=== PATIENT | female | born 1955 | race Caucasian/White ===

== ENCOUNTER 2021-07-15 17:07 | Inpatient (IN) ==
[2021-07-15 20:17] LABS: Hematocrit 20.9 VOL% (35.7-47.0); Hemoglobin 7.3 GM/DL (12.0-16.0); Immature Granulocytes % 0.6 %; Immature Granulocytes Absolute 0.01 #; Lymphocytes # 1.1 10*3/uL (1.4-4.0); Lymphocytes % 64.5 % (21.3-54.2); Mean Corpuscular HGB Conc 34.9 GM/DL (32-36); Mean Corpuscular Volume 114.2 FL (87-102); Mean Platelet Volume 12.3 FL (9.6-12.0); Monocytes % 5.8 % (1.7-12.7); Neutrophils % 29.1 % (38.7-73.9); Red Blood Count 1.83 MC/CUMM (3.8-5.5); Red Cell Distribution Width 15.5 % (9.3-17.3); White Blood Count 1.7 T/CUMM (4-12)
[2021-07-15 20:19] LABS: Albumin 3.1 G/DL (3.4-5.0); Bilirubin,Total 0.4 MG/DL (0.20-1.00); Calcium 9.3 MG/DL (8.5-10.1); Osmolality,Calculated 270.4 MOS/KG (273-304); Potassium 3.6 MMOL/L (3.5-5.1); Total Protein 7.5 G/DL (6.4-8.2)
[2021-07-15 20:25] LABS: Platelet Count 21 T/CUMM (130-400)
[2021-07-15 20:46] LABS: PT Patient Result 11.3 SECS (10.5-12.0); Partial Thromboplastin Time 24.7 SECS (23.8-32.1)
[2021-07-15 20:48] LABS: Lymphocytes 66 % (20-55); Segmented Neutrophils 26 % (50-85); Total Cells Counted 100
[2021-07-15 20:49] LABS: Anisocytosis 1+; Hypochromia 1+; Schistocytes Slight; Tear Drop Cells Few
[2021-07-15 20:50] LABS: Platelet Estimate Decreased; Polychromasia Slight; Spherocytes Few
[2021-07-15] MEDS ORDERED: LACTATED RINGERS 1,000 ML IV ONE (22:35)
[2021-07-15] MEDS ORDERED: CEFEPIME 2,000 MG in SODIUM CHLORIDE 0.9% 100 ML IV STA ×2 (22:36→23:54)
[2021-07-15] MEDS ORDERED: GLUCAGON 1 MG VIAL IM PRN (23:43)
[2021-07-15] MEDS ORDERED: ACETAMINOPHEN 325 MG TABLET PO PRN (23:43)
[2021-07-15] MEDS ORDERED: DEXTROSE 50% 25 GM/50 ML SYRINGE IV PRN (23:49)
[2021-07-16 00:38] LABS: Bacteria,Urine Occasional /HPF (Few); Bilirubin,Urine Negative (Negative); Blood, Urine Negative (Negative); Glucose,Urine (UA) Negative (Negative); Ketones,Urine Negative (Negative); Nitrite,Urine Negative (Negative); Protein,Urine Negative; RBC,Urine 2 /HPF (0-4); Squamous Epithelial Cell,Urine Occasional /HPF (0-10); Urine Appearance CLEAR (Clear); Urine Color Yellow (Yellow); Urine Specific Gravity 1.014 (1.001-1.035); Urine Urobilinogen < 2.0 EU/DL (<2.0)
[2021-07-16] MEDS ORDERED: CEFEPIME 2,000 MG in SODIUM CHLORIDE 0.9% 100 ML IV ONE (01:30)
[2021-07-16] MEDS ORDERED: INSULIN REGULAR 100 UNIT/ML SUBCUT SCH (07:30)
[2021-07-16 07:54] LABS: Hematocrit 20.3 VOL% (35.7-47.0); Hemoglobin 6.8 GM/DL (12.0-16.0); Immature Granulocytes % 8.8 %; Lymphocytes # 0.7 10*3/uL (1.4-4.0); Lymphocytes % 57.9 % (21.3-54.2); Mean Corpuscular HGB Conc 33.5 GM/DL (32-36); Mean Corpuscular Volume 113.4 FL (87-102); Mean Platelet Volume 10.9 FL (9.6-12.0); Monocytes % 9.6 % (1.7-12.7); Neutrophils % 23.7 % (38.7-73.9); Red Blood Count 1.79 MC/CUMM (3.8-5.5); Red Cell Distribution Width 15.2 % (9.3-17.3); White Blood Count 1.1 T/CUMM (4-12)
[2021-07-16 07:56] LABS: Platelet Count 19 T/CUMM (130-400)
[2021-07-16 08:14] LABS: Albumin 2.9 G/DL (3.4-5.0); Bilirubin,Total 0.5 MG/DL (0.20-1.00); Calcium 9.1 MG/DL (8.5-10.1); Potassium 3.9 MMOL/L (3.5-5.1)
[2021-07-16 08:16] LABS: Band Neutrophils 1 % (0-10); Lymphocytes 55 % (20-55); Platelet Estimate Decreased; Segmented Neutrophils 29 % (50-85); Total Cells Counted 100
[2021-07-16 08:17] LABS: Hypochromia 1+; Microcytosis 1+
[2021-07-16] MEDS ORDERED: PANTOPRAZOLE 40 MG TABLET PO SCH (09:00)
[2021-07-16] MEDS ORDERED: SODIUM CHLORIDE 0.9% 1,000 ML IV PRN (09:52)
[2021-07-16] MEDS: CEFEPIME 2,000 MG in SODIUM CHLORIDE 0.9% 100 ML IV SCH ×2 (10:00→21:36)
[2021-07-16] MEDS: SODIUM CHLORIDE 0.9% 1,000 ML IV SCH ×2 (11:41→13:00)
[2021-07-16] MEDS ORDERED: ARIPiprazole 5 MG TABLET PO PRN (17:14)
[2021-07-16] MEDS: FLUoxetine 20 MG CAPSULE PO SCH (21:36)
[2021-07-17 06:53] LABS: Hematocrit 26.4 VOL% (35.7-47.0); Hemoglobin 9.1 GM/DL (12.0-16.0); Lymphocytes # 0.6 10*3/uL (1.4-4.0); Mean Corpuscular HGB Conc 34.5 GM/DL (32-36); Mean Corpuscular Volume 101.9 FL (87-102); Mean Platelet Volume 11.1 FL (9.6-12.0); Monocytes % 9.5 % (1.7-12.7); Neutrophils % 29.5 % (38.7-73.9); Red Blood Count 2.59 MC/CUMM (3.8-5.5); Red Cell Distribution Width 21.9 % (9.3-17.3); White Blood Count 1.1 T/CUMM (4-12)
[2021-07-17 06:55] LABS: Platelet Count 18 T/CUMM (130-400)
[2021-07-17 07:17] LABS: Hypochromia 1+; Lymphocytes 58 % (20-55); Microcytosis 1+; Nucleated Red Blood Cells 1 (0-5); Platelet Estimate Decreased; Segmented Neutrophils 32 % (50-85); Total Cells Counted 100
[2021-07-17 07:20] LABS: Albumin 2.9 G/DL (3.4-5.0); Bilirubin,Total 0.6 MG/DL (0.20-1.00); Osmolality,Calculated 275.8 MOS/KG (273-304); Potassium 4.2 MMOL/L (3.5-5.1); Total Protein 7.1 G/DL (6.4-8.2)
[2021-07-17] MEDS ORDERED: FERROUS SULFATE 325 MG TABLET PO SCH (09:00)
[2021-07-17] MEDS: CEFEPIME 2,000 MG in SODIUM CHLORIDE 0.9% 100 ML IV SCH (09:48)
[2021-07-17] MEDS: FLUoxetine 20 MG CAPSULE PO SCH ×2 (09:48→14:26)
[2021-07-17 12:47] VITALS: BP 147/82
== END 2021-07-17 15:40 | disposition home health service (06) | DRG 810 ==
LOC: N.ED 17:07 → N.EDINP 23:43 → N.3E 07-16 06:06 → N.TELES 07-16 09:15
PROVIDERS: ADMIT Internal Medicine; ATTEND Internal Medicine

== ENCOUNTER 2021-08-08 22:04 | Inpatient (IN) ==
[2021-08-08 22:33] LABS: Hematocrit 23.4 VOL% (35.7-47.0); Hemoglobin 7.6 GM/DL (12.0-16.0); Immature Granulocytes % 12.5 %; Immature Granulocytes Absolute 0.14 #; Lymphocytes # 0.5 10*3/uL (1.4-4.0); Mean Corpuscular HGB Conc 32.5 GM/DL (32-36); Mean Corpuscular Volume 105.9 FL (87-102); Mean Platelet Volume 9.2 FL (9.6-12.0); Monocytes % 29.5 % (1.7-12.7); Red Blood Count 2.21 MC/CUMM (3.8-5.5); Red Cell Distribution Width 19.6 % (9.3-17.3); White Blood Count 1.1 T/CUMM (4-12)
[2021-08-08 22:36] LABS: Platelet Count 8 T/CUMM (130-400)
[2021-08-08 22:52] LABS: Alanine Aminotransferase 15 U/L (13-56); Albumin 2.8 G/DL (3.4-5.0); Alkaline Phosphatase 80 U/L (45-117); Aspartate Amino Transferase 11 U/L (0-37); Bilirubin,Total < 0.39 MG/DL (0.20-1.00); Blood Urea Nitrogen 38 MG/DL (7-18); Calcium 8.6 MG/DL (8.5-10.1); Carbon Dioxide 24 MMOL/L (21-32); Estimated Glom Filtration Rate 30 ML/MIN; Glucose 143 MG/DL (74-106); Osmolality,Calculated 278.2 MOS/KG (273-304); Potassium 4.3 MMOL/L (3.5-5.1); Sodium 134 MMOL/L (136-145); Total Protein 6.9 G/DL (6.4-8.2)
[2021-08-08 22:54] LABS: Band Neutrophils 1 % (0-10); Eosinophils 1 % (0-10); Lymphocytes 54 % (20-55); Segmented Neutrophils 19 % (50-85); Total Cells Counted 100
[2021-08-08 22:55] LABS: Anisocytosis 1+; Atypical Lymphocytes 1+; Elliptocytes Few; Hypochromia 1+; Platelet Estimate Decreased; Schistocytes Few
[2021-08-09] MEDS ORDERED: PIPERACILLIN/TAZOBACTAM 3,375 MG in SODIUM CHLORIDE 0.9% 100 ML IV STA (02:40)
[2021-08-09] MEDS ORDERED: SODIUM CHLORIDE 0.9% 1,000 ML IV PRN (02:40)
[2021-08-09 03:07] LABS: PT Patient Result 11.1 SECS (10.5-12.0)
[2021-08-09] MEDS ORDERED: ONDANSETRON 4 MG/2 ML VIAL IV PRN (03:22)
[2021-08-09] MEDS ORDERED: DEXTROSE 10% 250 ML BAG IV PRN (03:22)
[2021-08-09] MEDS ORDERED: GLUCAGON 1 MG VIAL IM PRN (03:22)
[2021-08-09 03:46] LABS: Bilirubin,Urine Negative (Negative); Blood, Urine Negative (Negative); Glucose,Urine (UA) Negative (Negative); Ketones,Urine Negative (Negative); Mucus,Urine Occasional /LPF (Occasional); Nitrite,Urine Negative (Negative); Protein,Urine Negative; RBC,Urine 2 /HPF (0-4); Squamous Epithelial Cell,Urine Occasional /HPF (0-10); Urine Appearance CLEAR (Clear); Urine Color Yellow (Yellow); Urine Specific Gravity 1.016 (1.001-1.035); Urine Urobilinogen < 2.0 EU/DL (<2.0)
[2021-08-09] MEDS: SODIUM CHLORIDE 0.9% 1,000 ML IV SCH ×2 (03:58→19:45)
[2021-08-09 05:06] LABS: Basophils % 0.7 % (0.0-0.8); Hematocrit 23.5 VOL% (35.7-47.0); Hemoglobin 7.4 GM/DL (12.0-16.0); Immature Granulocytes % 1.4 %; Immature Granulocytes Absolute 0.02 #; Lymphocytes # 0.5 10*3/uL (1.4-4.0); Lymphocytes % 31.5 % (21.3-54.2); Mean Corpuscular HGB Conc 31.5 GM/DL (32-36); Mean Corpuscular Volume 107.3 FL (87-102); Monocytes % 34.3 % (1.7-12.7); Neutrophils % 32.1 % (38.7-73.9); Red Blood Count 2.19 MC/CUMM (3.8-5.5); Red Cell Distribution Width 19.7 % (9.3-17.3); White Blood Count 1.4 T/CUMM (4-12)
[2021-08-09 05:47] LABS: Platelet Count 7 T/CUMM (130-400)
[2021-08-09 06:10] LABS: Atypical Lymphocytes Few; Hypochromia 1+; Lymphocytes 41 % (20-55); Microcytosis 1+; Platelet Estimate Decreased; Segmented Neutrophils 28 % (50-85); Total Cells Counted 100
[2021-08-09] MEDS ORDERED: MEROPENEM 500 MG in SODIUM CHLORIDE 0.9% 100 ML IV SCH (07:00)
[2021-08-09] MEDS: INSULIN LISPRO 100 UNIT/ML SUBCUT SCH ×3 (07:30→17:37)
[2021-08-09] MEDS: PANTOPRAZOLE 40 MG TABLET PO SCH (10:00)
[2021-08-09] MEDS: VANCOMYCIN INJ 1,250 MG in SODIUM CHLORIDE 0.9% 250 ML IV SCH (10:00)
[2021-08-09] MEDS: PIPERACILLIN/TAZOBACTAM 3,375 MG in SODIUM CHLORIDE 0.9% 100 ML IV SCH ×2 (11:32→19:46)
[2021-08-09] MEDS: POLYETHYLENE GLYCOL POWDER 17 GM PACK PO SCH (17:22)
[2021-08-10] MEDS: PIPERACILLIN/TAZOBACTAM 3,375 MG in SODIUM CHLORIDE 0.9% 100 ML IV SCH ×3 (03:26→22:34)
[2021-08-10 05:17] LABS: Hematocrit 18.8 VOL% (35.7-47.0); Immature Granulocytes % 0.8 %; Immature Granulocytes Absolute 0.01 #; Lymphocytes # 0.5 10*3/uL (1.4-4.0); Lymphocytes % 40.2 % (21.3-54.2); Mean Corpuscular HGB Conc 31.9 GM/DL (32-36); Mean Corpuscular Volume 107.4 FL (87-102); Mean Platelet Volume 10.7 FL (9.6-12.0); Monocytes % 25.2 % (1.7-12.7); Neutrophils % 33.8 % (38.7-73.9); Platelet Count 45 T/CUMM (130-400); Red Blood Count 1.75 MC/CUMM (3.8-5.5); Red Cell Distribution Width 20.2 % (9.3-17.3); White Blood Count 1.3 T/CUMM (4-12)
[2021-08-10 05:25] LABS: Calcium 7.9 MG/DL (8.5-10.1); Osmolality,Calculated 284.5 MOS/KG (273-304)
[2021-08-10 05:48] LABS: Atypical Lymphocytes Few; Hypochromia 2+; Lymphocytes 54 % (20-55); Microcytosis 1+; Platelet Estimate Decreased; Segmented Neutrophils 30 % (50-85); Total Cells Counted 100
[2021-08-10] MEDS ORDERED: SODIUM CHLORIDE 0.9% 1,000 ML IV PRN (05:51)
[2021-08-10 05:55] LABS: Hematocrit 21.2 VOL% (35.7-47.0); Hemoglobin 6.7 GM/DL (12.0-16.0)
[2021-08-10] MEDS: DOCUSATE SODIUM 100 MG CAPSULE PO SCH ×3 (06:18→22:41)
[2021-08-10] MEDS: INSULIN LISPRO 100 UNIT/ML SUBCUT SCH ×5 (06:18→22:34)
[2021-08-10] MEDS: PANTOPRAZOLE 40 MG TABLET PO SCH (08:42)
[2021-08-10] MEDS: VANCOMYCIN INJ 1,250 MG in SODIUM CHLORIDE 0.9% 250 ML IV SCH (10:29)
[2021-08-10] MEDS: POLYETHYLENE GLYCOL POWDER 17 GM PACK PO SCH (10:52)
[2021-08-10] MEDS ORDERED: MAGNESIUM HYDROXIDE SUSP 30 ML UDCUP PO ONE (11:52)
[2021-08-10] MEDS ORDERED: DEXAMETHASONE INJ 10 MG in SODIUM CHLORIDE 0.9% 50 ML IV ONE (11:55)
[2021-08-10] MEDS ORDERED: diphenhydrAMINE 50 MG/1 ML VIAL IV ONE (11:56)
[2021-08-10] MEDS: ACETAMINOPHEN 325 MG TABLET PO PRN (12:21)
[2021-08-10] MEDS ORDERED: DEXAMETHASONE 4 MG/1 ML VIAL IV ONE (12:30)
[2021-08-10] MEDS: SODIUM CHLORIDE 0.9% 1,000 ML IV SCH (17:50)
[2021-08-10 18:34] LABS: Hematocrit 22.9 VOL% (35.7-47.0); Hemoglobin 7.3 GM/DL (12.0-16.0)
[2021-08-10 23:04] LABS: Hematocrit 24.5 VOL% (35.7-47.0)
[2021-08-11 06:18] LABS: Hematocrit 23.3 VOL% (35.7-47.0); Hemoglobin 7.6 GM/DL (12.0-16.0); Lymphocytes # 0.3 10*3/uL (1.4-4.0); Lymphocytes % 46.6 % (21.3-54.2); Mean Corpuscular HGB Conc 32.6 GM/DL (32-36); Mean Corpuscular Volume 97.1 FL (87-102); Mean Platelet Volume 9.5 FL (9.6-12.0); Neutrophils % 42.4 % (38.7-73.9); Red Cell Distribution Width 19.7 % (9.3-17.3)
[2021-08-11 06:32] LABS: White Blood Count 0.7 T/CUMM (4-12)
[2021-08-11 06:33] LABS: Platelet Count 36 T/CUMM (130-400)
[2021-08-11] MEDS: PIPERACILLIN/TAZOBACTAM 3,375 MG in SODIUM CHLORIDE 0.9% 100 ML IV SCH (06:34)
[2021-08-11 06:44] LABS: Calcium 8.4 MG/DL (8.5-10.1); Osmolality,Calculated 291.1 MOS/KG (273-304); Potassium 4.4 MMOL/L (3.5-5.1)
[2021-08-11 06:49] LABS: Atypical Lymphocytes Few; Hypochromia 1+; Lymphocytes 40 % (20-55); Microcytosis 1+; Ovalocytes Few; Segmented Neutrophils 50 % (50-85); Total Cells Counted 100
[2021-08-11 06:50] LABS: Platelet Estimate Decreased
[2021-08-11] MEDS: DOCUSATE SODIUM 100 MG CAPSULE PO SCH (08:24)
[2021-08-11] MEDS: POLYETHYLENE GLYCOL POWDER 17 GM PACK PO SCH (08:24)
[2021-08-11] MEDS: PANTOPRAZOLE 40 MG TABLET PO SCH (08:49)
[2021-08-11] MEDS: VANCOMYCIN INJ 1,250 MG in SODIUM CHLORIDE 0.9% 250 ML IV SCH (10:33)
[2021-08-11] MEDS: INSULIN LISPRO 100 UNIT/ML SUBCUT SCH ×3 (10:33→17:05)
[2021-08-11] MEDS: cefTRIAXone 1,000 MG in SODIUM CHLORIDE 0.9% 100 ML IV SCH (10:57)
[2021-08-11] MEDS: FLUoxetine 20 MG CAPSULE PO SCH ×2 (15:36→22:34)
[2021-08-12] MEDS: DOCUSATE SODIUM 100 MG CAPSULE PO SCH ×2 (01:35→10:55)
[2021-08-12] MEDS: INSULIN LISPRO 100 UNIT/ML SUBCUT SCH ×3 (01:35→12:00)
[2021-08-12] MEDS: ACETAMINOPHEN 325 MG TABLET PO PRN (01:51)
[2021-08-12 04:58] LABS: Eosinophils % 0.8 % (0.00-10.9); Hemoglobin 7.2 GM/DL (12.0-16.0); Immature Granulocytes % 1.7 %; Immature Granulocytes Absolute 0.02 #; Lymphocytes # 0.9 10*3/uL (1.4-4.0); Lymphocytes % 74.2 % (21.3-54.2); Mean Corpuscular HGB Conc 32.7 GM/DL (32-36); Mean Corpuscular Volume 98.7 FL (87-102); Mean Platelet Volume 11.1 FL (9.6-12.0); Monocytes % 8.3 % (1.7-12.7); Red Blood Count 2.23 MC/CUMM (3.8-5.5); Red Cell Distribution Width 19.8 % (9.3-17.3); White Blood Count 1.2 T/CUMM (4-12)
[2021-08-12 05:05] LABS: Platelet Count 29 T/CUMM (130-400)
[2021-08-12 05:15] LABS: Calcium 8.2 MG/DL (8.5-10.1); Potassium 3.9 MMOL/L (3.5-5.1)
[2021-08-12 05:25] LABS: Atypical Lymphocytes Few; Hypochromia 1+; Lymphocytes 81 % (20-55); Microcytosis 1+; Ovalocytes Slight; Segmented Neutrophils 10 % (50-85); Target Cells Slight; Total Cells Counted 100
[2021-08-12 05:26] LABS: Platelet Estimate Decreased
[2021-08-12] MEDS ORDERED: FERROUS SULFATE 325 MG TABLET PO SCH (09:00)
[2021-08-12] MEDS: PANTOPRAZOLE 40 MG TABLET PO SCH (10:52)
[2021-08-12] MEDS: FLUoxetine 20 MG CAPSULE PO SCH (10:52)
[2021-08-12] MEDS: cefTRIAXone 1,000 MG in SODIUM CHLORIDE 0.9% 100 ML IV SCH (10:52)
[2021-08-12] MEDS: POLYETHYLENE GLYCOL POWDER 17 GM PACK PO SCH (10:55)
[2021-08-12] MEDS ORDERED: AZACITIDINE SUBCUT SCH (11:00)
[2021-08-12 16:11] VITALS: BP 115/58
== END 2021-08-12 16:02 | disposition home health service (06) | DRG 809 ==
LOC: N.ED 22:04 → SUATTDRO 08-09 03:22 → N.EDINP 08-09 03:22 → N.TELEN 08-09 16:20
PROVIDERS: ADMIT Internal Medicine; ATTEND Emergency Medicine

== ENCOUNTER 2021-09-02 11:32 | Inpatient (IN) ==
[2021-09-02] MEDS ORDERED: PROMETHAZINE INJ 25 MG in SODIUM CHLORIDE 0.9% 50 ML IV PRN (14:21)
[2021-09-02] MEDS ORDERED: traMADol 50 MG TABLET PO PRN ×2 (14:21→15:06)
[2021-09-02] MEDS ORDERED: TEMAZEPAM 7.5 MG CAPSULE PO PRN (14:21)
[2021-09-02] MEDS ORDERED: ALUMINUM/MAGNES/SIMETH MAX STR 30 ML UDCUP PO PRN (14:21)
[2021-09-02] MEDS ORDERED: LOPERAMIDE 2 MG CAPSULE PO PRN ×2 (14:21)
[2021-09-02] MEDS ORDERED: MYLANTA/LIDO VISC 2:1 300 ML BOTTLE SWISH/SWAL PRN (14:21)
[2021-09-02] MEDS ORDERED: LACTULOSE 20 GM/30 ML UDCUP PO PRN (14:21)
[2021-09-02] MEDS ORDERED: MAGNESIUM HYDROXIDE SUSP 30 ML UDCUP PO PRN (14:21)
[2021-09-02] MEDS ORDERED: ALPRAZolam 0.25 MG TABLET PO PRN (14:21)
[2021-09-02] MEDS ORDERED: guaiFENesin 200 MG/10 ML UDCUP PO PRN (14:21)
[2021-09-02] MEDS ORDERED: MYLANTA/LIDO VISC 2:1 300 ML BOTTLE SWISH/SPIT PRN (14:21)
[2021-09-02] MEDS ORDERED: ALBUTEROL 2.5 MG/3 ML NEB RESP TX PRN (15:03)
[2021-09-02] MEDS ORDERED: DEXTROSE 10% 250 ML BAG IV PRN (15:03)
[2021-09-02] MEDS ORDERED: GLUCAGON 1 MG VIAL IM PRN (15:03)
[2021-09-02] MEDS ORDERED: METHOCARBAMOL 500 MG TABLET PO PRN (15:06)
[2021-09-02] MEDS: ACETAMINOPHEN 325 MG TABLET PO PRN (15:18)
[2021-09-02] MEDS ORDERED: methylPREDNISolone SOD SUC 125 MG/2 ML VIAL IV ONE (15:25)
[2021-09-02] MEDS ORDERED: SODIUM CHLORIDE 0.9% 1,000 ML IV PRN (15:30)
[2021-09-02 16:12] LABS: Hematocrit 23.6 VOL% (35.7-47.0); Immature Granulocytes % 4.2 %; Immature Granulocytes Absolute 0.03 #; Lymphocytes # 0.4 10*3/uL (1.4-4.0); Lymphocytes % 50.7 % (21.3-54.2); Mean Corpuscular HGB Conc 33.9 GM/DL (32-36); Mean Corpuscular Volume 92.5 FL (87-102); Monocytes % 4.2 % (1.7-12.7); Neutrophils % 40.9 % (38.7-73.9); Red Blood Count 2.55 MC/CUMM (3.8-5.5); Red Cell Distribution Width 15.3 % (9.3-17.3)
[2021-09-02 16:27] LABS: Calcium 8.6 MG/DL (8.5-10.1); Osmolality,Calculated 276.2 MOS/KG (273-304); Platelet Count 3 T/CUMM (130-400); Potassium 4.6 MMOL/L (3.5-5.1); White Blood Count 0.7 T/CUMM (4-12)
[2021-09-02] MEDS: LACTATED RINGERS 1,000 ML IV SCH (16:28)
[2021-09-02] MEDS: CEFEPIME 1,000 MG in SODIUM CHLORIDE 0.9% 100 ML IV SCH (16:30)
[2021-09-02] MEDS: FAMOTIDINE 20 MG/2 ML VIAL IV SCH (17:01)
[2021-09-02] MEDS: diphenhydrAMINE 50 MG/1 ML VIAL IV PRN (17:04)
[2021-09-02 17:21] LABS: Lymphocytes 52 % (20-55); Platelet Estimate Decreased; Segmented Neutrophils 38 % (50-85); Total Cells Counted 100
[2021-09-02 17:22] LABS: Hypochromia 2+; Microcytosis 1+
[2021-09-02] MEDS: FLUoxetine 20 MG CAPSULE PO SCH (21:06)
[2021-09-02] MEDS: ARIPiprazole 5 MG TABLET PO SCH (21:06)
[2021-09-02] MEDS: traZODone 50 MG TABLET PO SCH (21:06)
[2021-09-02] MEDS: PANTOPRAZOLE 40 MG TABLET PO SCH (21:06)
[2021-09-02 23:05] LABS: Bacteria,Urine Moderate /HPF (Few); Bilirubin,Urine Negative (Negative); Blood, Urine Negative (Negative); Glucose,Urine (UA) Negative (Negative); Ketones,Urine Negative (Negative); Mucus,Urine Many /LPF (Occasional); Nitrite,Urine Negative (Negative); Protein,Urine 30 MG/DL; RBC,Urine 3 /HPF (0-4); Squamous Epithelial Cell,Urine Many /HPF (0-10); Urine Appearance CLOUDY (Clear); Urine Color Amber (Yellow); Urine Specific Gravity 1.019 (1.001-1.035); Urine Urobilinogen < 2.0 EU/DL (<2.0)
[2021-09-02] MEDS: VANCOMYCIN INJ 1,250 MG in SODIUM CHLORIDE 0.9% 250 ML IV SCH (23:30)
[2021-09-03] MEDS: CEFEPIME 1,000 MG in SODIUM CHLORIDE 0.9% 100 ML IV SCH ×5 (00:20→23:12)
[2021-09-03 03:58] LABS: Hematocrit 21.7 VOL% (35.7-47.0); Hemoglobin 7.2 GM/DL (12.0-16.0); Immature Granulocytes % 6.5 %; Immature Granulocytes Absolute 0.03 #; Lymphocytes # 0.2 10*3/uL (1.4-4.0); Lymphocytes % 32.6 % (21.3-54.2); Mean Corpuscular HGB Conc 33.2 GM/DL (32-36); Mean Corpuscular Volume 92.3 FL (87-102); Mean Platelet Volume 9.7 FL (9.6-12.0); Monocytes % 6.5 % (1.7-12.7); Neutrophils % 54.4 % (38.7-73.9); Red Blood Count 2.35 MC/CUMM (3.8-5.5); Red Cell Distribution Width 14.9 % (9.3-17.3)
[2021-09-03 04:08] LABS: White Blood Count 0.5 T/CUMM (4-12)
[2021-09-03 04:09] LABS: Platelet Count 34 T/CUMM (130-400)
[2021-09-03 04:12] LABS: Albumin 2.2 G/DL (3.4-5.0); Bilirubin,Total 0.5 MG/DL (0.20-1.00); Calcium 9.1 MG/DL (8.5-10.1); Osmolality,Calculated 280.4 MOS/KG (273-304); Potassium 4.2 MMOL/L (3.5-5.1); Total Protein 6.5 G/DL (6.4-8.2)
[2021-09-03] MEDS: FAMOTIDINE 20 MG/2 ML VIAL IV SCH ×2 (04:14→16:01)
[2021-09-03 04:16] LABS: Hypochromia Slight; Lymphocytes 40 % (20-55); Microcytosis 1+; Ovalocytes Slight; Segmented Neutrophils 50 % (50-85); Total Cells Counted 100
[2021-09-03 04:17] LABS: Platelet Estimate Decreased
[2021-09-03] MEDS: FERROUS SULFATE 325 MG TABLET PO SCH (09:37)
[2021-09-03] MEDS: PANTOPRAZOLE 40 MG TABLET PO SCH (09:37)
[2021-09-03] MEDS: allopurinoL 100 MG TABLET PO SCH (09:37)
[2021-09-03] MEDS: FLUoxetine 20 MG CAPSULE PO SCH ×3 (09:37→20:39)
[2021-09-03] MEDS: VENETOCLAX 100 MG PO SCH (09:38)
[2021-09-03] MEDS: LACTATED RINGERS 1,000 ML IV SCH ×3 (12:08→21:27)
[2021-09-03] MEDS: ARIPiprazole 5 MG TABLET PO SCH (20:39)
[2021-09-03] MEDS: traZODone 50 MG TABLET PO SCH (20:39)
[2021-09-03] MEDS: VANCOMYCIN INJ 1,250 MG in SODIUM CHLORIDE 0.9% 250 ML IV SCH (20:41)
[2021-09-04] MEDS: ACETAMINOPHEN 325 MG TABLET PO PRN ×2 (01:42→10:15)
[2021-09-04] MEDS: FAMOTIDINE 20 MG/2 ML VIAL IV SCH ×2 (04:17→15:16)
[2021-09-04] MEDS: CEFEPIME 1,000 MG in SODIUM CHLORIDE 0.9% 100 ML IV SCH ×4 (04:18→22:00)
[2021-09-04 05:06] LABS: Hematocrit 21.6 VOL% (35.7-47.0); Hemoglobin 7.3 GM/DL (12.0-16.0); Immature Granulocytes % 4.1 %; Immature Granulocytes Absolute 0.02 #; Lymphocytes # 0.2 10*3/uL (1.4-4.0); Lymphocytes % 40.8 % (21.3-54.2); Mean Corpuscular HGB Conc 33.8 GM/DL (32-36); Mean Corpuscular Volume 90.8 FL (87-102); Mean Platelet Volume 10.9 FL (9.6-12.0); Monocytes % 12.2 % (1.7-12.7); Neutrophils % 42.9 % (38.7-73.9); Red Blood Count 2.38 MC/CUMM (3.8-5.5); Red Cell Distribution Width 15.3 % (9.3-17.3)
[2021-09-04 05:12] LABS: Platelet Count 20 T/CUMM (130-400); White Blood Count 0.5 T/CUMM (4-12)
[2021-09-04 05:30] LABS: Hypochromia 1+; Lymphocytes 48 % (20-55); Nucleated Red Blood Cells 1 (0-5); Segmented Neutrophils 32 % (50-85); Total Cells Counted 100
[2021-09-04 05:31] LABS: Anisocytosis 1+; Calcium 8.8 MG/DL (8.5-10.1); Microcytosis 1+; Osmolality,Calculated 281.8 MOS/KG (273-304); Ovalocytes Slight; Platelet Estimate Decreased; Potassium 3.8 MMOL/L (3.5-5.1)
[2021-09-04] MEDS: FERROUS SULFATE 325 MG TABLET PO SCH (10:15)
[2021-09-04] MEDS: PANTOPRAZOLE 40 MG TABLET PO SCH (10:15)
[2021-09-04] MEDS: allopurinoL 100 MG TABLET PO SCH (10:15)
[2021-09-04] MEDS: FLUoxetine 20 MG CAPSULE PO SCH ×3 (10:15→20:24)
[2021-09-04] MEDS: VENETOCLAX 100 MG PO SCH (10:18)
[2021-09-04] MEDS: LACTATED RINGERS 1,000 ML IV SCH (15:20)
[2021-09-04] MEDS: VANCOMYCIN INJ 1,250 MG in SODIUM CHLORIDE 0.9% 250 ML IV SCH (20:24)
[2021-09-04] MEDS: ARIPiprazole 5 MG TABLET PO SCH (20:24)
[2021-09-04] MEDS: traZODone 50 MG TABLET PO SCH (20:24)
[2021-09-05] MEDS: CEFEPIME 1,000 MG in SODIUM CHLORIDE 0.9% 100 ML IV SCH ×4 (03:17→22:11)
[2021-09-05] MEDS: FAMOTIDINE 20 MG/2 ML VIAL IV SCH ×2 (03:17→15:38)
[2021-09-05] MEDS: LACTATED RINGERS 1,000 ML IV SCH (03:57)
[2021-09-05 05:14] LABS: Hematocrit 18.6 VOL% (35.7-47.0); Immature Granulocytes % 11.7 %; Immature Granulocytes Absolute 0.07 #; Lymphocytes # 0.2 10*3/uL (1.4-4.0); Mean Corpuscular HGB Conc 33.9 GM/DL (32-36); Mean Corpuscular Volume 92.5 FL (87-102); Mean Platelet Volume 11.5 FL (9.6-12.0); Neutrophils % 38.3 % (38.7-73.9); Red Blood Count 2.01 MC/CUMM (3.8-5.5); Red Cell Distribution Width 15.8 % (9.3-17.3)
[2021-09-05 05:17] LABS: White Blood Count 0.6 T/CUMM (4-12)
[2021-09-05 05:20] LABS: Hemoglobin 6.3 GM/DL (12.0-16.0); Platelet Count 12 T/CUMM (130-400)
[2021-09-05 05:39] LABS: Hypochromia Slight; Lymphocytes 40 % (20-55); Segmented Neutrophils 48 % (50-85); Total Cells Counted 100
[2021-09-05 05:40] LABS: Microcytosis 1+; Platelet Estimate Decreased
[2021-09-05 05:44] LABS: Calcium 8.3 MG/DL (8.5-10.1); Osmolality,Calculated 267.8 MOS/KG (273-304); Potassium 3.4 MMOL/L (3.5-5.1)
[2021-09-05] MEDS ORDERED: POTASSIUM CHLORIDE 20 MEQ TABLET PO ONE (07:53)
[2021-09-05] MEDS ORDERED: MAGNESIUM SULF RIDER 2 GM/50 ML PREMIX IV ONE (07:54)
[2021-09-05] MEDS: allopurinoL 100 MG TABLET PO SCH (09:02)
[2021-09-05] MEDS: ACETAMINOPHEN 325 MG TABLET PO PRN ×3 (09:02→22:16)
[2021-09-05] MEDS: FLUoxetine 20 MG CAPSULE PO SCH ×3 (09:02→20:39)
[2021-09-05] MEDS: PANTOPRAZOLE 40 MG TABLET PO SCH (09:02)
[2021-09-05] MEDS: FERROUS SULFATE 325 MG TABLET PO SCH (09:09)
[2021-09-05] MEDS: FLUCONAZOLE 200 MG TABLET PO SCH (11:23)
[2021-09-05] MEDS: VENETOCLAX 100 MG PO SCH (11:27)
[2021-09-05] MEDS ORDERED: BENZOCAINE/MENTHOL LOZENGE 18/BOX PO PRN (12:13)
[2021-09-05] MEDS: VANCOMYCIN INJ 1,250 MG in SODIUM CHLORIDE 0.9% 250 ML IV SCH (20:39)
[2021-09-05] MEDS: traZODone 50 MG TABLET PO SCH (20:39)
[2021-09-05] MEDS: ARIPiprazole 5 MG TABLET PO SCH (20:39)
[2021-09-05] MEDS: IBUPROFEN 600 MG TABLET PO PRN (20:57)
[2021-09-06] MEDS: LACTATED RINGERS 1,000 ML IV SCH ×2 (00:37→19:57)
[2021-09-06] MEDS: FAMOTIDINE 20 MG/2 ML VIAL IV SCH ×2 (03:43→15:51)
[2021-09-06] MEDS: CEFEPIME 1,000 MG in SODIUM CHLORIDE 0.9% 100 ML IV SCH ×3 (03:43→15:52)
[2021-09-06 07:10] LABS: Hematocrit 19.7 VOL% (35.7-47.0); Hemoglobin 6.6 GM/DL (12.0-16.0); Immature Granulocytes % 16.7 %; Immature Granulocytes Absolute 0.05 #; Lymphocytes # 0.2 10*3/uL (1.4-4.0); Lymphocytes % 53.3 % (21.3-54.2); Mean Corpuscular HGB Conc 33.5 GM/DL (32-36); Mean Corpuscular Volume 91.6 FL (87-102); Mean Platelet Volume 9.6 FL (9.6-12.0); Red Blood Count 2.15 MC/CUMM (3.8-5.5); Red Cell Distribution Width 15.9 % (9.3-17.3)
[2021-09-06 07:14] LABS: White Blood Count 0.3 T/CUMM (4-12)
[2021-09-06 07:15] LABS: Platelet Count 9 T/CUMM (130-400)
[2021-09-06] MEDS ORDERED: SODIUM CHLORIDE 0.9% 1,000 ML IV PRN ×2 (07:30→10:37)
[2021-09-06 07:33] LABS: Lymphocytes 80 % (20-55); Microcytosis 1+; Osmolality,Calculated 274.2 MOS/KG (273-304); Platelet Estimate Decreased; Potassium 3.5 MMOL/L (3.5-5.1); Segmented Neutrophils 7 % (50-85); Total Cells Counted 100
[2021-09-06 07:34] LABS: Hypochromia 2+
[2021-09-06] MEDS: FLUCONAZOLE 200 MG TABLET PO SCH (09:37)
[2021-09-06] MEDS: FERROUS SULFATE 325 MG TABLET PO SCH (09:37)
[2021-09-06] MEDS: allopurinoL 100 MG TABLET PO SCH (09:37)
[2021-09-06] MEDS: PANTOPRAZOLE 40 MG TABLET PO SCH (09:37)
[2021-09-06] MEDS: FLUoxetine 20 MG CAPSULE PO SCH ×3 (09:38→20:43)
[2021-09-06] MEDS: VENETOCLAX 100 MG PO SCH (09:38)
[2021-09-06] MEDS: NYSTATIN 500,000 UNIT/5 ML UDCUP SWISH/SWAL SCH ×3 (13:28→20:44)
[2021-09-06] MEDS: FILGRASTIM-SNDZ 300 MCG/0.5 ML SYRINGE SUBCUT SCH (13:29)
[2021-09-06] MEDS: diphenhydrAMINE 50 MG/1 ML VIAL IV PRN (15:50)
[2021-09-06] MEDS: IBUPROFEN 600 MG TABLET PO PRN (15:52)
[2021-09-06] MEDS: VANCOMYCIN INJ 1,250 MG in SODIUM CHLORIDE 0.9% 250 ML IV SCH (20:35)
[2021-09-06] MEDS: ARIPiprazole 5 MG TABLET PO SCH (20:43)
[2021-09-06] MEDS: traZODone 50 MG TABLET PO SCH (20:44)
[2021-09-07] MEDS: CEFEPIME 1,000 MG in SODIUM CHLORIDE 0.9% 100 ML IV SCH ×4 (02:07→21:15)
[2021-09-07] MEDS: LACTATED RINGERS 1,000 ML IV SCH ×2 (02:07→15:46)
[2021-09-07] MEDS: FAMOTIDINE 20 MG/2 ML VIAL IV SCH ×2 (03:34→15:46)
[2021-09-07 05:16] LABS: Hematocrit 25.6 VOL% (35.7-47.0); Immature Granulocytes % 7.4 %; Immature Granulocytes Absolute 0.02 #; Lymphocytes # 0.2 10*3/uL (1.4-4.0); Lymphocytes % 55.6 % (21.3-54.2); Mean Corpuscular Volume 88.9 FL (87-102); Mean Platelet Volume 9.2 FL (9.6-12.0); Monocytes % 11.1 % (1.7-12.7); Neutrophils % 25.9 % (38.7-73.9); Red Cell Distribution Width 15.2 % (9.3-17.3)
[2021-09-07 05:21] LABS: Hemoglobin 8.7 GM/DL (12.0-16.0); Red Blood Count 2.88 MC/CUMM (3.8-5.5); White Blood Count 0.3 T/CUMM (4-12)
[2021-09-07 05:22] LABS: Platelet Count 29 T/CUMM (130-400)
[2021-09-07 05:35] LABS: Calcium 7.9 MG/DL (8.5-10.1); Osmolality,Calculated 278.7 MOS/KG (273-304); Potassium 3.3 MMOL/L (3.5-5.1)
[2021-09-07 05:56] LABS: Hypochromia Slight; Lymphocytes 64 % (20-55); Microcytosis Slight; Segmented Neutrophils 7 % (50-85); Total Cells Counted 100
[2021-09-07 05:57] LABS: Platelet Estimate Decreased
[2021-09-07] MEDS: NYSTATIN 500,000 UNIT/5 ML UDCUP SWISH/SWAL SCH ×4 (08:06→21:16)
[2021-09-07] MEDS: FLUoxetine 20 MG CAPSULE PO SCH ×3 (08:06→21:15)
[2021-09-07] MEDS: allopurinoL 100 MG TABLET PO SCH (08:07)
[2021-09-07] MEDS: PANTOPRAZOLE 40 MG TABLET PO SCH (08:07)
[2021-09-07] MEDS: FLUCONAZOLE 200 MG TABLET PO SCH (08:07)
[2021-09-07] MEDS: FERROUS SULFATE 325 MG TABLET PO SCH (08:07)
[2021-09-07] MEDS: FILGRASTIM-SNDZ 300 MCG/0.5 ML SYRINGE SUBCUT SCH (08:58)
[2021-09-07] MEDS ORDERED: POTASSIUM CHLORIDE 20 MEQ TABLET PO ONE (09:00)
[2021-09-07] MEDS: VENETOCLAX 100 MG PO SCH (10:39)
[2021-09-07] MEDS: ONDANSETRON 4 MG/2 ML VIAL IV PRN (10:43)
[2021-09-07] MEDS: ARIPiprazole 5 MG TABLET PO SCH (21:15)
[2021-09-07] MEDS: traZODone 50 MG TABLET PO SCH (21:15)
[2021-09-07] MEDS: VANCOMYCIN INJ 1,250 MG in SODIUM CHLORIDE 0.9% 250 ML IV SCH (22:16)
[2021-09-08] MEDS: FAMOTIDINE 20 MG/2 ML VIAL IV SCH ×2 (03:01→16:03)
[2021-09-08 03:02] LABS: Hematocrit 27.2 VOL% (35.7-47.0); Hemoglobin 9.2 GM/DL (12.0-16.0); Immature Granulocytes % 4.5 %; Immature Granulocytes Absolute 0.01 #; Lymphocytes # 0.2 10*3/uL (1.4-4.0); Lymphocytes % 77.3 % (21.3-54.2); Mean Corpuscular HGB Conc 33.8 GM/DL (32-36); Mean Corpuscular Volume 89.5 FL (87-102); Mean Platelet Volume 10.4 FL (9.6-12.0); Monocytes % 9.1 % (1.7-12.7); Neutrophils % 9.1 % (38.7-73.9); Red Blood Count 3.04 MC/CUMM (3.8-5.5); Red Cell Distribution Width 15.1 % (9.3-17.3)
[2021-09-08] MEDS: CEFEPIME 1,000 MG in SODIUM CHLORIDE 0.9% 100 ML IV SCH ×4 (03:03→20:59)
[2021-09-08 03:08] LABS: Platelet Count 19 T/CUMM (130-400); White Blood Count 0.2 T/CUMM (4-12)
[2021-09-08 03:09] LABS: Potassium 3.4 MMOL/L (3.5-5.1)
[2021-09-08 04:25] LABS: Hypochromia 1+; Lymphocytes 80 % (20-55); Segmented Neutrophils 10 % (50-85); Total Cells Counted 100
[2021-09-08 04:26] LABS: Microcytosis 1+; Ovalocytes Slight; Platelet Estimate Decreased; Target Cells Slight
[2021-09-08] MEDS ORDERED: MAGNESIUM SULF RIDER 2 GM/50 ML PREMIX IV ONE (07:11)
[2021-09-08] MEDS ORDERED: POTASSIUM BICARB EFFERVESCENT 20 MEQ TAB.EFF PO ONE (07:11)
[2021-09-08] MEDS: FERROUS SULFATE 325 MG TABLET PO SCH (10:24)
[2021-09-08] MEDS: FLUCONAZOLE 200 MG TABLET PO SCH (10:24)
[2021-09-08] MEDS: NYSTATIN 500,000 UNIT/5 ML UDCUP SWISH/SWAL SCH ×4 (10:25→20:55)
[2021-09-08] MEDS: PANTOPRAZOLE 40 MG TABLET PO SCH (10:26)
[2021-09-08] MEDS: allopurinoL 100 MG TABLET PO SCH (10:26)
[2021-09-08] MEDS: VENETOCLAX 100 MG PO SCH (10:26)
[2021-09-08] MEDS: FLUoxetine 20 MG CAPSULE PO SCH ×3 (10:26→21:00)
[2021-09-08] MEDS: FILGRASTIM-SNDZ 300 MCG/0.5 ML SYRINGE SUBCUT SCH (13:09)
[2021-09-08] MEDS: FLUCONAZOLE INJ 200 MG/100 ML PREMIX IV SCH (14:19)
[2021-09-08] MEDS: LACTATED RINGERS 1,000 ML IV SCH (16:02)
[2021-09-08] MEDS: SUCRALFATE 1 GM/10 ML UDCUP PO SCH ×2 (17:30→20:59)
[2021-09-08] MEDS: ACYCLOVIR INJ 250 MG in SODIUM CHLORIDE 0.9% 100 ML IV SCH (17:31)
[2021-09-08] MEDS: traZODone 50 MG TABLET PO SCH (20:59)
[2021-09-08] MEDS: ARIPiprazole 5 MG TABLET PO SCH (20:59)
[2021-09-08] MEDS: VANCOMYCIN INJ 1,250 MG in SODIUM CHLORIDE 0.9% 250 ML IV SCH (22:18)
[2021-09-09] MEDS: ACYCLOVIR INJ 250 MG in SODIUM CHLORIDE 0.9% 100 ML IV SCH ×3 (00:11→16:52)
[2021-09-09] MEDS: CEFEPIME 1,000 MG in SODIUM CHLORIDE 0.9% 100 ML IV SCH ×4 (03:04→20:11)
[2021-09-09] MEDS: FAMOTIDINE 20 MG/2 ML VIAL IV SCH ×2 (03:04→15:18)
[2021-09-09 05:22] LABS: Osmolality,Calculated 272.1 MOS/KG (273-304); Potassium 3.2 MMOL/L (3.5-5.1)
[2021-09-09] MEDS: ACETAMINOPHEN 325 MG TABLET PO PRN (06:37)
[2021-09-09] MEDS: FERROUS SULFATE 325 MG TABLET PO SCH (09:07)
[2021-09-09] MEDS: FLUoxetine 20 MG CAPSULE PO SCH ×3 (09:07→20:10)
[2021-09-09] MEDS: allopurinoL 100 MG TABLET PO SCH (09:07)
[2021-09-09] MEDS: PANTOPRAZOLE 40 MG TABLET PO SCH (09:07)
[2021-09-09] MEDS: FLUCONAZOLE 200 MG TABLET PO SCH (09:07)
[2021-09-09] MEDS: NYSTATIN 500,000 UNIT/5 ML UDCUP SWISH/SWAL SCH ×4 (09:08→20:11)
[2021-09-09] MEDS: SUCRALFATE 1 GM/10 ML UDCUP PO SCH ×4 (09:18→20:11)
[2021-09-09] MEDS: VENETOCLAX 100 MG PO SCH (10:22)
[2021-09-09 14:00] LABS: Hematocrit 25.4 VOL% (35.7-47.0); Hemoglobin 8.5 GM/DL (12.0-16.0); Lymphocytes # 0.2 10*3/uL (1.4-4.0); Lymphocytes % 82.8 % (21.3-54.2); Mean Corpuscular HGB Conc 33.5 GM/DL (32-36); Mean Corpuscular Volume 90.7 FL (87-102); Mean Platelet Volume 10.5 FL (9.6-12.0); Monocytes % 6.9 % (1.7-12.7); Neutrophils % 10.3 % (38.7-73.9); Red Cell Distribution Width 14.7 % (9.3-17.3)
[2021-09-09 14:03] LABS: Platelet Count 11 T/CUMM (130-400); White Blood Count 0.3 T/CUMM (4-12)
[2021-09-09] MEDS: LACTATED RINGERS 1,000 ML IV SCH ×2 (14:09→14:10)
[2021-09-09 14:36] LABS: Anisocytosis 1+; Lymphocytes 90 % (20-55); Segmented Neutrophils 5 % (50-85); Spherocytes Slight; Total Cells Counted 100
[2021-09-09 14:37] LABS: Hypochromia Slight; Platelet Estimate Decreased; Schistocytes Slight
[2021-09-09] MEDS: FLUCONAZOLE INJ 200 MG/100 ML PREMIX IV SCH (14:37)
[2021-09-09] MEDS: ARIPiprazole 5 MG TABLET PO SCH (20:10)
[2021-09-09] MEDS: traZODone 50 MG TABLET PO SCH (20:11)
[2021-09-09] MEDS: VANCOMYCIN INJ 1,250 MG in SODIUM CHLORIDE 0.9% 250 ML IV SCH (21:30)
[2021-09-10] MEDS: ACYCLOVIR INJ 250 MG in SODIUM CHLORIDE 0.9% 100 ML IV SCH ×3 (00:20→17:36)
[2021-09-10] MEDS: CEFEPIME 1,000 MG in SODIUM CHLORIDE 0.9% 100 ML IV SCH ×3 (02:54→21:12)
[2021-09-10] MEDS: FAMOTIDINE 20 MG/2 ML VIAL IV SCH ×2 (02:54→15:14)
[2021-09-10 05:54] LABS: Hematocrit 25.7 VOL% (35.7-47.0); Hemoglobin 8.5 GM/DL (12.0-16.0); Lymphocytes # 0.3 10*3/uL (1.4-4.0); Lymphocytes % 91.2 % (21.3-54.2); Mean Corpuscular HGB Conc 33.1 GM/DL (32-36); Mean Corpuscular Volume 92.1 FL (87-102); Mean Platelet Volume 12.2 FL (9.6-12.0); Monocytes % 2.9 % (1.7-12.7); Neutrophils % 5.9 % (38.7-73.9); Red Blood Count 2.79 MC/CUMM (3.8-5.5); Red Cell Distribution Width 14.5 % (9.3-17.3)
[2021-09-10 05:57] LABS: Platelet Count 9 T/CUMM (130-400); White Blood Count 0.3 T/CUMM (4-12)
[2021-09-10 06:13] LABS: Calcium 8.2 MG/DL (8.5-10.1)
[2021-09-10 06:25] LABS: Hypochromia 1+; Lymphocytes 100 % (20-55); Microcytosis 1+; Platelet Estimate Decreased; Total Cells Counted 100
[2021-09-10] MEDS: POTASSIUM CHLORIDE 20 MEQ TABLET PO PRN ×2 (08:55→11:35)
[2021-09-10] MEDS: FERROUS SULFATE 325 MG TABLET PO SCH (08:55)
[2021-09-10] MEDS: FLUoxetine 20 MG CAPSULE PO SCH ×3 (08:55→20:07)
[2021-09-10] MEDS: NYSTATIN 500,000 UNIT/5 ML UDCUP SWISH/SWAL SCH ×4 (08:55→20:07)
[2021-09-10] MEDS: VENETOCLAX 200 MG PO SCH (08:56)
[2021-09-10] MEDS: PANTOPRAZOLE 40 MG TABLET PO SCH (08:56)
[2021-09-10] MEDS: SUCRALFATE 1 GM/10 ML UDCUP PO SCH ×4 (08:56→20:07)
[2021-09-10] MEDS: LACTATED RINGERS 1,000 ML IV SCH (08:56)
[2021-09-10] MEDS: allopurinoL 100 MG TABLET PO SCH (08:56)
[2021-09-10] MEDS: FLUCONAZOLE INJ 200 MG/100 ML PREMIX IV SCH (13:30)
[2021-09-10] MEDS: traZODone 50 MG TABLET PO SCH (20:06)
[2021-09-10] MEDS: ARIPiprazole 5 MG TABLET PO SCH (20:07)
[2021-09-11] MEDS: ACYCLOVIR INJ 250 MG in SODIUM CHLORIDE 0.9% 100 ML IV SCH ×3 (00:16→20:12)
[2021-09-11] MEDS: FAMOTIDINE 20 MG/2 ML VIAL IV SCH ×2 (03:13→14:30)
[2021-09-11] MEDS: CEFEPIME 1,000 MG in SODIUM CHLORIDE 0.9% 100 ML IV SCH ×4 (03:15→21:47)
[2021-09-11] MEDS: LACTATED RINGERS 1,000 ML IV SCH ×2 (04:11→23:31)
[2021-09-11 05:43] LABS: Hematocrit 25.4 VOL% (35.7-47.0); Hemoglobin 8.5 GM/DL (12.0-16.0); Lymphocytes # 0.4 10*3/uL (1.4-4.0); Lymphocytes % 90.5 % (21.3-54.2); Mean Corpuscular HGB Conc 33.5 GM/DL (32-36); Monocytes % 2.4 % (1.7-12.7); Neutrophils % 7.1 % (38.7-73.9); Red Blood Count 2.79 MC/CUMM (3.8-5.5); Red Cell Distribution Width 14.5 % (9.3-17.3)
[2021-09-11 05:48] LABS: White Blood Count 0.4 T/CUMM (4-12)
[2021-09-11 05:49] LABS: Platelet Count 6 T/CUMM (130-400)
[2021-09-11 06:08] LABS: Hypochromia 1+; Lymphocytes 96 % (20-55); Microcytosis 1+; Platelet Estimate Decreased; Segmented Neutrophils 4 % (50-85); Total Cells Counted 100
[2021-09-11 06:11] LABS: Calcium 8.9 MG/DL (8.5-10.1); Osmolality,Calculated 266.4 MOS/KG (273-304); Potassium 3.6 MMOL/L (3.5-5.1)
[2021-09-11] MEDS: PANTOPRAZOLE 40 MG TABLET PO SCH (08:50)
[2021-09-11] MEDS: allopurinoL 100 MG TABLET PO SCH (08:50)
[2021-09-11] MEDS: NYSTATIN 500,000 UNIT/5 ML UDCUP SWISH/SWAL SCH ×4 (08:51→20:58)
[2021-09-11] MEDS: SUCRALFATE 1 GM/10 ML UDCUP PO SCH ×4 (08:51→20:58)
[2021-09-11] MEDS: FLUoxetine 20 MG CAPSULE PO SCH ×3 (08:51→20:55)
[2021-09-11] MEDS: FERROUS SULFATE 325 MG TABLET PO SCH (08:51)
[2021-09-11] MEDS: VENETOCLAX 200 MG PO SCH (08:53)
[2021-09-11] MEDS ORDERED: SODIUM CHLORIDE 0.9% 1,000 ML IV PRN ×2 (09:43→13:43)
[2021-09-11] MEDS: FLUCONAZOLE INJ 200 MG/100 ML PREMIX IV SCH (14:26)
[2021-09-11] MEDS: diphenhydrAMINE CAP 25 MG CAPSULE PO PRN (17:21)
[2021-09-11] MEDS: diphenhydrAMINE 50 MG/1 ML VIAL IV PRN (18:41)
[2021-09-11] MEDS: ACETAMINOPHEN 325 MG TABLET PO PRN (18:52)
[2021-09-11] MEDS: ONDANSETRON 4 MG/2 ML VIAL IV PRN (18:53)
[2021-09-11] MEDS: ARIPiprazole 5 MG TABLET PO SCH (20:55)
[2021-09-11] MEDS: traZODone 50 MG TABLET PO SCH (20:55)
[2021-09-12] MEDS: ACYCLOVIR INJ 250 MG in SODIUM CHLORIDE 0.9% 100 ML IV SCH ×2 (01:21→08:07)
[2021-09-12] MEDS: CEFEPIME 1,000 MG in SODIUM CHLORIDE 0.9% 100 ML IV SCH ×2 (03:52→09:29)
[2021-09-12] MEDS: FAMOTIDINE 20 MG/2 ML VIAL IV SCH (03:52)
[2021-09-12 05:43] LABS: Hematocrit 23.3 VOL% (35.7-47.0); Immature Granulocytes % 2.5 %; Immature Granulocytes Absolute 0.01 #; Lymphocytes # 0.4 10*3/uL (1.4-4.0); Mean Corpuscular HGB Conc 34.3 GM/DL (32-36); Mean Corpuscular Volume 90.3 FL (87-102); Mean Platelet Volume 11.4 FL (9.6-12.0); Neutrophils % 2.5 % (38.7-73.9); Red Blood Count 2.58 MC/CUMM (3.8-5.5); Red Cell Distribution Width 14.6 % (9.3-17.3)
[2021-09-12 05:47] LABS: Calcium 8.8 MG/DL (8.5-10.1); Potassium 3.1 MMOL/L (3.5-5.1)
[2021-09-12 05:49] LABS: Platelet Count 34 T/CUMM (130-400); White Blood Count 0.4 T/CUMM (4-12)
[2021-09-12 06:30] LABS: Hypochromia 1+; Lymphocytes 96 % (20-55); Microcytosis 1+; Platelet Estimate Decreased; Segmented Neutrophils 4 % (50-85); Total Cells Counted 100
[2021-09-12] MEDS: SUCRALFATE 1 GM/10 ML UDCUP PO SCH ×2 (08:07→11:48)
[2021-09-12] MEDS: NYSTATIN 500,000 UNIT/5 ML UDCUP SWISH/SWAL SCH ×2 (08:07→14:07)
[2021-09-12] MEDS: PANTOPRAZOLE 40 MG TABLET PO SCH (08:07)
[2021-09-12] MEDS: FERROUS SULFATE 325 MG TABLET PO SCH (08:07)
[2021-09-12] MEDS: allopurinoL 100 MG TABLET PO SCH (08:07)
[2021-09-12] MEDS: FLUoxetine 20 MG CAPSULE PO SCH ×2 (08:07→14:07)
[2021-09-12] MEDS: VENETOCLAX 200 MG PO SCH (08:41)
[2021-09-12] MEDS ORDERED: SODIUM CHLORIDE 0.9% 1,000 ML IV PRN (08:42)
[2021-09-12] MEDS: diphenhydrAMINE CAP 25 MG CAPSULE PO PRN (10:33)
[2021-09-12] MEDS: ACETAMINOPHEN 325 MG TABLET PO PRN (10:34)
[2021-09-12] MEDS ORDERED: FAMOTIDINE 20 MG/2 ML VIAL IV ONE (10:41)
[2021-09-12] MEDS: LACTATED RINGERS 1,000 ML IV SCH (15:04)
[2021-09-12] MEDS: FLUCONAZOLE INJ 200 MG/100 ML PREMIX IV SCH (15:05)
[2021-09-12 15:35] VITALS: BP 151/73
== END 2021-09-12 15:54 | disposition home health service (06) | DRG 809 ==
LOC: N.TELES → SUATTDRO 13:38
PROVIDERS: ADMIT Specialist; ATTEND Internal Medicine

== ENCOUNTER 2021-12-13 08:12 | Inpatient (IN) ==
[2021-12-13] MEDS ORDERED: ACETAMINOPHEN 500 MG TABLET PO STA (08:30)
[2021-12-13] MEDS ORDERED: ACETAMINOPHEN 500 MG TABLET ONE (08:31)
[2021-12-13] MEDS ORDERED: ONDANSETRON 4 MG/2 ML VIAL IV STA (08:45)
[2021-12-13] MEDS ORDERED: LACTATED RINGERS 1,000 ML IV ONE (08:45)
[2021-12-13 09:16] LABS: Hematocrit 21.4 VOL% (35.7-47.0); Hemoglobin 7.4 GM/DL (12.0-16.0); Immature Granulocytes % 5.9 %; Immature Granulocytes Absolute 0.02 #; Lymphocytes # 0.2 10*3/uL (1.4-4.0); Lymphocytes % 52.9 % (21.3-54.2); Mean Corpuscular HGB Conc 34.6 GM/DL (32-36); Mean Corpuscular Volume 96.8 FL (87-102); Monocytes # 0.1 10*3/uL (0.11-0.8); Monocytes % 26.5 % (1.7-12.7); Neutrophils % 14.7 % (38.7-73.9); Red Blood Count 2.21 MC/CUMM (3.8-5.5); Red Cell Distribution Width 17.4 % (9.3-17.3)
[2021-12-13 09:21] LABS: Platelet Count 2 T/CUMM (130-400); White Blood Count 0.3 T/CUMM (4-12)
[2021-12-13 09:36] LABS: Albumin 2.9 G/DL (3.4-5.0); Bilirubin,Total 0.7 MG/DL (0.20-1.00); Calcium 8.9 MG/DL (8.5-10.1); Osmolality,Calculated 275.4 MOS/KG (273-304); Potassium 3.9 MMOL/L (3.5-5.1); Total Protein 6.7 G/DL (6.4-8.2)
[2021-12-13 09:38] LABS: Lymphocytes 64 % (20-55); Macrocytosis 1+; Total Cells Counted 100
[2021-12-13 09:39] LABS: Atypical Lymphocytes Few; Platelet Estimate Decreased
[2021-12-13] MEDS ORDERED: SODIUM CHLORIDE 0.9% 1,000 ML IV PRN ×3 (09:39→23:41)
[2021-12-13] MEDS ORDERED: VANCOMYCIN INJ 1,000 MG in SODIUM CHLORIDE 0.9% 250 ML IV STA (10:05)
[2021-12-13] MEDS ORDERED: CEFEPIME 1,000 MG in SODIUM CHLORIDE 0.9% 100 ML IV STA (10:05)
[2021-12-13] MEDS ORDERED: LACTATED RINGERS 2,000 ML IV ONE (10:05)
[2021-12-13] MEDS ORDERED: DEXTROSE 10% 250 ML BAG IV PRN ×2 (10:48→12:26)
[2021-12-13] MEDS ORDERED: GLUCAGON 1 MG VIAL IM PRN (10:48)
[2021-12-13] MEDS ORDERED: DOCUSATE SODIUM 100 MG CAPSULE PO PRN (10:55)
[2021-12-13] MEDS ORDERED: ONDANSETRON 4 MG/2 ML VIAL IV PRN (10:55)
[2021-12-13 11:02] LABS: Bilirubin,Urine Negative (Negative); Blood, Urine Negative (Negative); Glucose,Urine (UA) Negative (Negative); Ketones,Urine Negative (Negative); Mucus,Urine Occasional /LPF (Occasional); Nitrite,Urine Negative (Negative); Protein,Urine Negative (Negative); RBC,Urine 1 /HPF (0-4); Squamous Epithelial Cell,Urine Occasional /HPF (0-10); Urine Appearance Clear (Clear); Urine Color Yellow (Yellow); Urine Specific Gravity 1.015 (1.001-1.035); Urine Urobilinogen 0.2 eU/dL (<2.0)
[2021-12-13] MEDS ORDERED: methylPREDNISolone SOD SUC 40 MG/1 ML VIAL ONE (11:04)
[2021-12-13] MEDS ORDERED: diphenhydrAMINE 50 MG/1 ML VIAL ONE (11:04)
[2021-12-13] MEDS ORDERED: FAMOTIDINE 20 MG/2 ML VIAL IV ONE ×2 (11:05→11:20)
[2021-12-13] MEDS ORDERED: diphenhydrAMINE 50 MG/1 ML VIAL IV ONE (11:20)
[2021-12-13] MEDS ORDERED: FAMOTIDINE 20 MG/2 ML VIAL IV SCH (11:20)
[2021-12-13 11:24] LABS: Thyroid Stimulating Hormone 0.64 uIU/ml (0.358-3.74)
[2021-12-13] MEDS ORDERED: MAGNESIUM SULF RIDER 2 GM/50 ML PREMIX IV ONE (11:38)
[2021-12-13] MEDS ORDERED: MAGNESIUM SULF RIDER 2 GM/50 ML PREMIX IV STA (12:32)
[2021-12-13] MEDS: LACTATED RINGERS 1,000 ML IV SCH (13:45)
[2021-12-13] MEDS: CEFEPIME 2,000 MG in SODIUM CHLORIDE 0.9% 100 ML IV SCH (16:00)
[2021-12-13] MEDS: INSULIN LISPRO 100 UNIT/ML SUBCUT SCH ×2 (17:21→20:56)
[2021-12-13] MEDS ORDERED: methylPREDNISolone SOD SUC 40 MG/1 ML VIAL IV ONE (18:00)
[2021-12-13] MEDS: FILGRASTIM-SNDZ 300 MCG/0.5 ML SYRINGE SUBCUT SCH (19:38)
[2021-12-13] MEDS: FLUoxetine 20 MG CAPSULE PO SCH (20:56)
[2021-12-13] MEDS: ACYCLOVIR 200 MG CAPSULE PO SCH (20:56)
[2021-12-13] MEDS: ACETAMINOPHEN 325 MG TABLET PO PRN (20:57)
[2021-12-13] MEDS: CEFEPIME 1,000 MG in SODIUM CHLORIDE 0.9% 100 ML IV SCH (21:22)
[2021-12-14] MEDS: LACTATED RINGERS 1,000 ML IV SCH ×3 (00:51→21:48)
[2021-12-14] MEDS: CEFEPIME 1,000 MG in SODIUM CHLORIDE 0.9% 100 ML IV SCH ×4 (03:22→21:48)
[2021-12-14] MEDS: CEFEPIME 2,000 MG in SODIUM CHLORIDE 0.9% 100 ML IV SCH (03:23)
[2021-12-14] MEDS: ACETAMINOPHEN 325 MG TABLET PO PRN ×2 (04:07→16:31)
[2021-12-14 05:21] LABS: Hematocrit 20.3 VOL% (35.7-47.0); Hemoglobin 7.1 GM/DL (12.0-16.0); Immature Granulocytes % 7.7 %; Immature Granulocytes Absolute 0.03 #; Lymphocytes # 0.2 10*3/uL (1.4-4.0); Lymphocytes % 53.8 % (21.3-54.2); Mean Corpuscular Volume 91.9 FL (87-102); Mean Platelet Volume 9.8 FL (9.6-12.0); Monocytes # 0.1 10*3/uL (0.11-0.8); Monocytes % 15.4 % (1.7-12.7); Neutrophils % 23.1 % (38.7-73.9); Platelet Count 65 T/CUMM (130-400); Red Blood Count 2.21 MC/CUMM (3.8-5.5)
[2021-12-14 05:24] LABS: White Blood Count 0.4 T/CUMM (4-12)
[2021-12-14 05:42] LABS: Hypochromia Slight; Lymphocytes 80 % (20-55); Platelet Estimate Decreased; Total Cells Counted 100
[2021-12-14 06:41] LABS: Albumin 2.6 G/DL (3.4-5.0); Bilirubin,Total 0.7 MG/DL (0.20-1.00); Calcium 8.6 MG/DL (8.5-10.1); Osmolality,Calculated 285.5 MOS/KG (273-304); Potassium 4.2 MMOL/L (3.5-5.1); Total Protein 5.7 G/DL (6.4-8.2)
[2021-12-14] MEDS: INSULIN LISPRO 100 UNIT/ML SUBCUT SCH ×4 (08:37→21:49)
[2021-12-14] MEDS: FILGRASTIM-SNDZ 300 MCG/0.5 ML SYRINGE SUBCUT SCH (09:46)
[2021-12-14] MEDS: PANTOPRAZOLE 40 MG TABLET PO SCH (09:47)
[2021-12-14] MEDS: allopurinoL 100 MG TABLET PO SCH (09:47)
[2021-12-14] MEDS: FLUoxetine 20 MG CAPSULE PO SCH ×3 (09:47→21:50)
[2021-12-14] MEDS: ACYCLOVIR 200 MG CAPSULE PO SCH ×2 (09:47→21:50)
[2021-12-14] MEDS: FERROUS SULFATE 325 MG TABLET PO SCH (09:47)
[2021-12-14] MEDS ORDERED: SODIUM CHLORIDE 0.9% 1,000 ML IV PRN (11:59)
[2021-12-14] MEDS: VANCOMYCIN INJ 1,250 MG in SODIUM CHLORIDE 0.9% 250 ML IV SCH (12:29)
[2021-12-14] MEDS ORDERED: methylPREDNISolone SOD SUC 40 MG/1 ML VIAL IV ONE (13:15)
[2021-12-14] MEDS ORDERED: FAMOTIDINE 20 MG/2 ML VIAL IV ONE (13:16)
[2021-12-14] MEDS ORDERED: diphenhydrAMINE 50 MG/1 ML VIAL IV ONE (13:17)
[2021-12-14 22:33] LABS: Hematocrit 22.1 VOL% (35.7-47.0); Hemoglobin 7.5 GM/DL (12.0-16.0)
[2021-12-15 05:21] LABS: Hemoglobin 7.5 GM/DL (12.0-16.0); Immature Granulocytes % 16.7 %; Immature Granulocytes Absolute 0.05 #; Lymphocytes # 0.1 10*3/uL (1.4-4.0); Lymphocytes % 36.7 % (21.3-54.2); Mean Corpuscular HGB Conc 34.1 GM/DL (32-36); Mean Corpuscular Volume 91.3 FL (87-102); Mean Platelet Volume 10.2 FL (9.6-12.0); Monocytes # 0.1 10*3/uL (0.11-0.8); Neutrophils % 26.6 % (38.7-73.9); Red Blood Count 2.41 MC/CUMM (3.8-5.5); Red Cell Distribution Width 17.6 % (9.3-17.3)
[2021-12-15 05:25] LABS: Platelet Count 31 T/CUMM (130-400); White Blood Count 0.3 T/CUMM (4-12)
[2021-12-15] MEDS: LACTATED RINGERS 1,000 ML IV SCH ×3 (05:36→18:09)
[2021-12-15] MEDS: CEFEPIME 1,000 MG in SODIUM CHLORIDE 0.9% 100 ML IV SCH ×4 (05:37→23:29)
[2021-12-15 05:43] LABS: Hypochromia Slight; Lymphocytes 30 % (20-55); Microcytosis Slight; Platelet Estimate Decreased; Total Cells Counted 100
[2021-12-15 06:41] LABS: Osmolality,Calculated 281.8 MOS/KG (273-304); Potassium 4.3 MMOL/L (3.5-5.1)
[2021-12-15] MEDS: INSULIN LISPRO 100 UNIT/ML SUBCUT SCH ×4 (08:27→23:29)
[2021-12-15] MEDS: FERROUS SULFATE 325 MG TABLET PO SCH (08:44)
[2021-12-15] MEDS: allopurinoL 100 MG TABLET PO SCH (08:45)
[2021-12-15] MEDS: FLUoxetine 20 MG CAPSULE PO SCH ×3 (08:45→22:10)
[2021-12-15] MEDS: PANTOPRAZOLE 40 MG TABLET PO SCH (08:45)
[2021-12-15] MEDS: ACYCLOVIR 200 MG CAPSULE PO SCH ×2 (08:45→22:09)
[2021-12-15] MEDS: FILGRASTIM-SNDZ 300 MCG/0.5 ML SYRINGE SUBCUT SCH (08:50)
[2021-12-15] MEDS ORDERED: SODIUM CHLORIDE 0.9% 1,000 ML IV PRN (11:17)
[2021-12-15] MEDS: VANCOMYCIN INJ 1,250 MG in SODIUM CHLORIDE 0.9% 250 ML IV SCH (12:58)
[2021-12-15] MEDS: HYDROCORTISONE 100 MG VIAL IV PRN ×2 (18:12→22:09)
[2021-12-15] MEDS: ACETAMINOPHEN 325 MG TABLET PO PRN (18:12)
[2021-12-16] MEDS: CEFEPIME 1,000 MG in SODIUM CHLORIDE 0.9% 100 ML IV SCH ×4 (03:25→21:45)
[2021-12-16 05:31] LABS: Hematocrit 24.8 VOL% (35.7-47.0); Hemoglobin 8.5 GM/DL (12.0-16.0); Immature Granulocytes % 9.7 %; Immature Granulocytes Absolute 0.03 #; Lymphocytes # 0.2 10*3/uL (1.4-4.0); Lymphocytes % 48.4 % (21.3-54.2); Mean Corpuscular HGB Conc 34.3 GM/DL (32-36); Mean Corpuscular Volume 90.2 FL (87-102); Mean Platelet Volume 10.8 FL (9.6-12.0); Monocytes # 0.1 10*3/uL (0.11-0.8); Monocytes % 16.1 % (1.7-12.7); Neutrophils % 25.8 % (38.7-73.9); Red Blood Count 2.75 MC/CUMM (3.8-5.5); Red Cell Distribution Width 16.8 % (9.3-17.3)
[2021-12-16 05:36] LABS: Platelet Count 22 T/CUMM (130-400); White Blood Count 0.3 T/CUMM (4-12)
[2021-12-16 05:52] LABS: Hypochromia Slight; Lymphocytes 40 % (20-55); Microcytosis Slight; Platelet Estimate Decreased; Total Cells Counted 100
[2021-12-16 05:55] LABS: Osmolality,Calculated 284.8 MOS/KG (273-304)
[2021-12-16] MEDS: INSULIN LISPRO 100 UNIT/ML SUBCUT SCH ×4 (09:01→20:42)
[2021-12-16] MEDS: FILGRASTIM-SNDZ 300 MCG/0.5 ML SYRINGE SUBCUT SCH (09:02)
[2021-12-16] MEDS: FLUoxetine 20 MG CAPSULE PO SCH ×3 (09:03→20:31)
[2021-12-16] MEDS: PANTOPRAZOLE 40 MG TABLET PO SCH (09:03)
[2021-12-16] MEDS: allopurinoL 100 MG TABLET PO SCH (09:03)
[2021-12-16] MEDS: ACYCLOVIR 200 MG CAPSULE PO SCH ×2 (09:04→20:31)
[2021-12-16] MEDS: FERROUS SULFATE 325 MG TABLET PO SCH (09:04)
[2021-12-16] MEDS: metroNIDAZOLE INJ 500 MG/100 ML PREMIX IV SCH ×2 (13:42→20:31)
[2021-12-16] MEDS: VANCOMYCIN INJ 1,250 MG in SODIUM CHLORIDE 0.9% 250 ML IV SCH (14:42)
[2021-12-16] MEDS: LACTATED RINGERS 1,000 ML IV SCH (19:08)
[2021-12-16] MEDS: ARIPiprazole 5 MG TABLET PO SCH (20:31)
[2021-12-17] MEDS: ACETAMINOPHEN 325 MG TABLET PO PRN ×2 (02:23→21:43)
[2021-12-17] MEDS: CEFEPIME 1,000 MG in SODIUM CHLORIDE 0.9% 100 ML IV SCH ×4 (02:30→21:43)
[2021-12-17] MEDS: metroNIDAZOLE INJ 500 MG/100 ML PREMIX IV SCH ×3 (05:39→22:00)
[2021-12-17 05:53] LABS: Hematocrit 24.8 VOL% (35.7-47.0); Hemoglobin 8.6 GM/DL (12.0-16.0); Lymphocytes # 0.2 10*3/uL (1.4-4.0); Lymphocytes % 74.2 % (21.3-54.2); Mean Corpuscular HGB Conc 34.7 GM/DL (32-36); Mean Corpuscular Volume 89.2 FL (87-102); Mean Platelet Volume 9.8 FL (9.6-12.0); Monocytes % 9.7 % (1.7-12.7); Neutrophils % 16.1 % (38.7-73.9); Red Blood Count 2.78 MC/CUMM (3.8-5.5); Red Cell Distribution Width 16.1 % (9.3-17.3)
[2021-12-17 05:56] LABS: White Blood Count 0.3 T/CUMM (4-12)
[2021-12-17 05:57] LABS: Platelet Count 13 T/CUMM (130-400)
[2021-12-17 06:07] LABS: Albumin 1.9 G/DL (3.4-5.0); Bilirubin,Total 0.7 MG/DL (0.20-1.00); Calcium 8.2 MG/DL (8.5-10.1); Osmolality,Calculated 282.5 MOS/KG (273-304); Potassium 3.2 MMOL/L (3.5-5.1); Total Protein 5.5 G/DL (6.4-8.2)
[2021-12-17 06:20] LABS: Hypochromia 1+; Lymphocytes 100 % (20-55); Microcytosis 1+; Platelet Estimate Decreased; Total Cells Counted 100
[2021-12-17] MEDS ORDERED: POTASSIUM CHLORIDE 20 MEQ TABLET PO ONE (07:34)
[2021-12-17] MEDS: allopurinoL 100 MG TABLET PO SCH (08:40)
[2021-12-17] MEDS: PANTOPRAZOLE 40 MG TABLET PO SCH (08:40)
[2021-12-17] MEDS: FERROUS SULFATE 325 MG TABLET PO SCH (08:40)
[2021-12-17] MEDS: ACYCLOVIR 200 MG CAPSULE PO SCH ×2 (08:40→21:42)
[2021-12-17] MEDS: FILGRASTIM-SNDZ 300 MCG/0.5 ML SYRINGE SUBCUT SCH (08:42)
[2021-12-17] MEDS: FLUoxetine 20 MG CAPSULE PO SCH ×3 (09:10→21:43)
[2021-12-17] MEDS: amLODIPine 5 MG TABLET PO SCH (10:44)
[2021-12-17] MEDS: INSULIN LISPRO 100 UNIT/ML SUBCUT SCH ×4 (10:48→21:43)
[2021-12-17] MEDS ORDERED: SODIUM CHLORIDE 0.9% 1,000 ML IV PRN (11:23)
[2021-12-17] MEDS: VANCOMYCIN INJ 1,250 MG in SODIUM CHLORIDE 0.9% 250 ML IV SCH (11:47)
[2021-12-17] MEDS: LACTATED RINGERS 1,000 ML IV SCH (18:54)
[2021-12-17] MEDS: ARIPiprazole 5 MG TABLET PO SCH (21:43)
[2021-12-18] MEDS: CEFEPIME 1,000 MG in SODIUM CHLORIDE 0.9% 100 ML IV SCH ×4 (03:35→21:45)
[2021-12-18 05:26] LABS: Hematocrit 25.8 VOL% (35.7-47.0); Immature Granulocytes % 6.7 %; Immature Granulocytes Absolute 0.02 #; Lymphocytes # 0.2 10*3/uL (1.4-4.0); Lymphocytes % 73.3 % (21.3-54.2); Mean Corpuscular HGB Conc 34.9 GM/DL (32-36); Mean Corpuscular Volume 89.6 FL (87-102); Mean Platelet Volume 11.8 FL (9.6-12.0); Red Blood Count 2.88 MC/CUMM (3.8-5.5); Red Cell Distribution Width 16.2 % (9.3-17.3)
[2021-12-18 05:33] LABS: Platelet Count 6 T/CUMM (130-400); White Blood Count 0.3 T/CUMM (4-12)
[2021-12-18 05:41] LABS: Bilirubin,Total 0.9 MG/DL (0.20-1.00); Calcium 8.6 MG/DL (8.5-10.1); Osmolality,Calculated 275.8 MOS/KG (273-304); Total Protein 5.7 G/DL (6.4-8.2)
[2021-12-18] MEDS: metroNIDAZOLE INJ 500 MG/100 ML PREMIX IV SCH ×3 (05:45→22:20)
[2021-12-18 05:47] LABS: Lymphocytes 80 % (20-55); Total Cells Counted 100
[2021-12-18 05:48] LABS: Anisocytosis 1+; Microcytosis 1+; Ovalocytes Slight; Platelet Estimate Decreased
[2021-12-18 05:49] LABS: Hypochromia Slight
[2021-12-18] MEDS ORDERED: SODIUM CHLORIDE 0.9% 1,000 ML IV PRN (07:47)
[2021-12-18] MEDS: INSULIN LISPRO 100 UNIT/ML SUBCUT SCH ×4 (08:12→21:11)
[2021-12-18] MEDS: ACYCLOVIR 200 MG CAPSULE PO SCH ×2 (09:49→21:10)
[2021-12-18] MEDS: PANTOPRAZOLE 40 MG TABLET PO SCH (09:49)
[2021-12-18] MEDS: FLUoxetine 20 MG CAPSULE PO SCH ×3 (09:49→21:10)
[2021-12-18] MEDS: FERROUS SULFATE 325 MG TABLET PO SCH (09:49)
[2021-12-18] MEDS: amLODIPine 5 MG TABLET PO SCH (09:49)
[2021-12-18] MEDS: allopurinoL 100 MG TABLET PO SCH (09:49)
[2021-12-18] MEDS: FILGRASTIM-SNDZ 300 MCG/0.5 ML SYRINGE SUBCUT SCH (09:53)
[2021-12-18] MEDS ORDERED: MAGNESIUM SULF RIDER 4 GM/100 ML PREMIX IV PRN (10:21)
[2021-12-18] MEDS ORDERED: MAGNESIUM SULF RIDER 2 GM/50 ML PREMIX IV PRN (10:21)
[2021-12-18] MEDS ORDERED: POTASSIUM CHLORIDE 20 MEQ TABLET PO SCH (10:30)
[2021-12-18] MEDS: HYDROCORTISONE 100 MG VIAL IV PRN (10:32)
[2021-12-18] MEDS ORDERED: POTASSIUM BICARB EFFERVESCENT 20 MEQ TAB.EFF PO SCH (12:30)
[2021-12-18] MEDS: VANCOMYCIN INJ 1,250 MG in SODIUM CHLORIDE 0.9% 250 ML IV SCH (17:59)
[2021-12-18] MEDS ORDERED: diphenhydrAMINE 50 MG/1 ML VIAL IV ONE (19:11)
[2021-12-18] MEDS: ARIPiprazole 5 MG TABLET PO SCH (21:14)
[2021-12-19] MEDS: CEFEPIME 1,000 MG in SODIUM CHLORIDE 0.9% 100 ML IV SCH ×3 (02:35→15:46)
[2021-12-19] MEDS: metroNIDAZOLE INJ 500 MG/100 ML PREMIX IV SCH ×2 (05:09→13:30)
[2021-12-19 05:24] LABS: Hematocrit 26.6 VOL% (35.7-47.0); Hemoglobin 8.9 GM/DL (12.0-16.0); Immature Granulocytes % 4.9 %; Immature Granulocytes Absolute 0.02 #; Lymphocytes # 0.3 10*3/uL (1.4-4.0); Mean Corpuscular HGB Conc 33.5 GM/DL (32-36); Mean Corpuscular Volume 89.9 FL (87-102); Mean Platelet Volume 10.8 FL (9.6-12.0); Monocytes % 7.3 % (1.7-12.7); Neutrophils % 9.8 % (38.7-73.9); Platelet Count 45 T/CUMM (130-400); Red Blood Count 2.96 MC/CUMM (3.8-5.5); Red Cell Distribution Width 16.1 % (9.3-17.3)
[2021-12-19 05:26] LABS: White Blood Count 0.4 T/CUMM (4-12)
[2021-12-19 05:40] LABS: Albumin 2.3 G/DL (3.4-5.0); Bilirubin,Total 0.8 MG/DL (0.20-1.00); Calcium 8.9 MG/DL (8.5-10.1); Osmolality,Calculated 275.8 MOS/KG (273-304); Potassium 2.8 MMOL/L (3.5-5.1); Total Protein 6.2 G/DL (6.4-8.2)
[2021-12-19 05:46] LABS: Hypochromia Slight; Lymphocytes 90 % (20-55); Microcytosis Slight; Platelet Estimate Decreased; Total Cells Counted 100
[2021-12-19] MEDS: INSULIN LISPRO 100 UNIT/ML SUBCUT SCH ×3 (08:17→17:05)
[2021-12-19] MEDS ORDERED: POTASSIUM BICARB EFFERVESCENT 20 MEQ TAB.EFF PO ONE (08:19)
[2021-12-19] MEDS: FERROUS SULFATE 325 MG TABLET PO SCH (09:26)
[2021-12-19] MEDS: ACYCLOVIR 200 MG CAPSULE PO SCH (09:26)
[2021-12-19] MEDS: amLODIPine 5 MG TABLET PO SCH (09:26)
[2021-12-19] MEDS: PANTOPRAZOLE 40 MG TABLET PO SCH (09:26)
[2021-12-19] MEDS: allopurinoL 100 MG TABLET PO SCH (09:27)
[2021-12-19] MEDS: FLUoxetine 20 MG CAPSULE PO SCH ×2 (09:27→15:48)
[2021-12-19 16:12] VITALS: BP 143/86
== END 2021-12-19 16:51 | disposition home or self-care (01) | DRG 871 ==
LOC: N.ED 08:12 → SUATTDRO 10:54 → N.EDINP 10:54 → N.TELES 17:27
PROVIDERS: ADMIT Internal Medicine; ATTEND Hospitalist

== ENCOUNTER 2021-12-30 02:31 | Inpatient (IN) ==
[2021-12-30] MEDS ORDERED: SODIUM CHLORIDE 0.9% 1,000 ML IV STA (02:50)
[2021-12-30 03:04] LABS: Hematocrit 22.7 VOL% (35.7-47.0); Hemoglobin 7.9 GM/DL (12.0-16.0); Lymphocytes # 0.2 10*3/uL (1.4-4.0); Lymphocytes % 77.4 % (21.3-54.2); Mean Corpuscular HGB Conc 34.8 GM/DL (32-36); Mean Corpuscular Volume 87.6 FL (87-102); Mean Platelet Volume 10.7 FL (9.6-12.0); Monocytes % 9.7 % (1.7-12.7); Neutrophils % 12.9 % (38.7-73.9); Red Blood Count 2.59 MC/CUMM (3.8-5.5); Red Cell Distribution Width 15.9 % (9.3-17.3)
[2021-12-30 03:08] LABS: White Blood Count 0.3 T/CUMM (4-12)
[2021-12-30 03:09] LABS: Platelet Count 6 T/CUMM (130-400)
[2021-12-30 03:24] LABS: Alanine Aminotransferase < 9 U/L (13-56); Albumin 2.4 G/DL (3.4-5.0); Alkaline Phosphatase 74 U/L (45-117); Aspartate Amino Transferase 4 U/L (0-37); Blood Urea Nitrogen 15 MG/DL (7-18); Carbon Dioxide 33 MMOL/L (21-32); Chloride 91 MMOL/L (98-107); Glucose 227 MG/DL (74-106); Osmolality,Calculated 269.7 MOS/KG (273-304); Potassium 2.8 MMOL/L (3.5-5.1); Sodium 131 MMOL/L (136-145); Total Protein 7.3 G/DL (6.4-8.2)
[2021-12-30 03:27] LABS: Lymphocytes 76 % (20-55); Total Cells Counted 100
[2021-12-30 03:28] LABS: Microcytosis Slight; Platelet Estimate Decreased
[2021-12-30 03:31] LABS: Bacteria,Urine Many /HPF (Few); Hyaline Casts,Urine 4 /LPF (0-3); Mucus,Urine Occasional /LPF (Occasional); Squamous Epithelial Cell,Urine Moderate /HPF (0-10)
[2021-12-30 03:32] LABS: Bilirubin,Urine Negative (Negative); Blood, Urine Trace mg/dL (Negative); Glucose,Urine (UA) Negative (Negative); Ketones,Urine Negative (Negative); Nitrite,Urine Positive (Negative); Protein,Urine >=300 mg/dL (Negative); Urine Appearance Clear (Clear); Urine Color Yellow (Yellow); Urine Specific Gravity 1.025 (1.001-1.035); Urine Urobilinogen 0.2 eU/dL (<2.0)
[2021-12-30] MEDS ORDERED: MEROPENEM 2,000 MG in SODIUM CHLORIDE 0.9% 100 ML IV ONE ×2 (03:59→04:30)
[2021-12-30] MEDS ORDERED: POTASSIUM CHLORIDE 20 MEQ TABLET PO STA (04:05)
[2021-12-30] MEDS ORDERED: ACETAMINOPHEN 325 MG TABLET PO PRN (04:13)
[2021-12-30] MEDS ORDERED: ONDANSETRON 4 MG/2 ML VIAL IV PRN (04:13)
[2021-12-30] MEDS ORDERED: GLUCAGON 1 MG VIAL IM PRN (04:13)
[2021-12-30] MEDS ORDERED: DEXTROSE 10% 250 ML BAG IV PRN (04:13)
[2021-12-30] MEDS ORDERED: DEXTROSE 50% 25 GM/50 ML VIAL IV PRN (04:13)
[2021-12-30] MEDS ORDERED: SODIUM CHLORIDE 0.9% 1,000 ML IV PRN ×2 (04:21→04:51)
[2021-12-30] MEDS ORDERED: POTASSIUM CHLORIDE 20 MEQ TABLET PO PRN (05:02)
[2021-12-30] MEDS: SODIUM CHLORIDE 0.9% 1,000 ML IV SCH ×2 (05:08→15:08)
[2021-12-30] MEDS ORDERED: diphenhydrAMINE 50 MG/1 ML VIAL ONE (05:45)
[2021-12-30] MEDS ORDERED: diphenhydrAMINE 50 MG/1 ML VIAL IV STA (06:12)
[2021-12-30] MEDS: INSULIN REGULAR 100 UNIT/ML SUBCUT SCH ×4 (07:42→21:14)
[2021-12-30] MEDS: FLUCONAZOLE INJ 200 MG/100 ML PREMIX IV SCH (07:44)
[2021-12-30] MEDS: PANTOPRAZOLE 40 MG TABLET PO SCH ×2 (07:52→08:30)
[2021-12-30] MEDS: MEROPENEM 500 MG in SODIUM CHLORIDE 0.9% 100 ML IV SCH ×2 (17:32→20:40)
[2021-12-30] MEDS: ACYCLOVIR 200 MG CAPSULE PO SCH (20:41)
[2021-12-30] MEDS: ARIPiprazole 5 MG TABLET PO SCH (20:41)
[2021-12-31] MEDS: SODIUM CHLORIDE 0.9% 1,000 ML IV SCH ×3 (01:07→21:27)
[2021-12-31 05:37] LABS: Hematocrit 21.2 VOL% (35.7-47.0); Hemoglobin 7.3 GM/DL (12.0-16.0); Lymphocytes # 0.3 10*3/uL (1.4-4.0); Lymphocytes % 84.4 % (21.3-54.2); Mean Corpuscular HGB Conc 34.4 GM/DL (32-36); Mean Corpuscular Volume 88.7 FL (87-102); Mean Platelet Volume 8.5 FL (9.6-12.0); Monocytes % 6.3 % (1.7-12.7); Neutrophils % 9.3 % (38.7-73.9); Platelet Count 44 T/CUMM (130-400); Red Blood Count 2.39 MC/CUMM (3.8-5.5); Red Cell Distribution Width 15.9 % (9.3-17.3)
[2021-12-31 05:39] LABS: White Blood Count 0.3 T/CUMM (4-12)
[2021-12-31] MEDS: MEROPENEM 500 MG in SODIUM CHLORIDE 0.9% 100 ML IV SCH ×3 (05:40→20:41)
[2021-12-31 05:47] LABS: Calcium 8.4 MG/DL (8.5-10.1); Osmolality,Calculated 270.2 MOS/KG (273-304); Potassium 3.1 MMOL/L (3.5-5.1)
[2021-12-31 05:53] LABS: Alanine Aminotransferase < 9 U/L (13-56); Alkaline Phosphatase 65 U/L (45-117); Aspartate Amino Transferase 6 U/L (0-37); Blood Urea Nitrogen 11 MG/DL (7-18); Calcium 8.1 MG/DL (8.5-10.1); Carbon Dioxide 31 MMOL/L (21-32); Chloride 99 MMOL/L (98-107); Glucose 144 MG/DL (74-106); Osmolality,Calculated 271.1 MOS/KG (273-304); Potassium 3.1 MMOL/L (3.5-5.1); Sodium 135 MMOL/L (136-145); Total Protein 6.2 G/DL (6.4-8.2)
[2021-12-31 05:55] LABS: Lymphocytes 100 % (20-55); Platelet Estimate Decreased; Total Cells Counted 100
[2021-12-31 05:56] LABS: Microcytosis Slight
[2021-12-31] MEDS ORDERED: POTASSIUM CHLORIDE 20 MEQ TABLET PO ONE (07:58)
[2021-12-31] MEDS: PANTOPRAZOLE 40 MG TABLET PO SCH (09:55)
[2021-12-31] MEDS: ACYCLOVIR 200 MG CAPSULE PO SCH ×2 (09:55→20:43)
[2021-12-31] MEDS: FLUCONAZOLE INJ 200 MG/100 ML PREMIX IV SCH (09:56)
[2021-12-31] MEDS: INSULIN REGULAR 100 UNIT/ML SUBCUT SCH ×4 (09:59→21:28)
[2021-12-31] MEDS ORDERED: MAGNESIUM SULF RIDER 4 GM/100 ML PREMIX IV ONE (13:11)
[2021-12-31] MEDS: ARIPiprazole 5 MG TABLET PO SCH (20:43)
[2022-01-01] MEDS: MEROPENEM 500 MG in SODIUM CHLORIDE 0.9% 100 ML IV SCH (04:30)
[2022-01-01 05:16] LABS: Hematocrit 22.1 VOL% (35.7-47.0); Hemoglobin 7.6 GM/DL (12.0-16.0); Lymphocytes # 0.3 10*3/uL (1.4-4.0); Lymphocytes % 85.3 % (21.3-54.2); Mean Corpuscular HGB Conc 34.4 GM/DL (32-36); Mean Corpuscular Volume 88.8 FL (87-102); Mean Platelet Volume 8.4 FL (9.6-12.0); Monocytes % 11.8 % (1.7-12.7); Neutrophils % 2.9 % (38.7-73.9); Red Blood Count 2.49 MC/CUMM (3.8-5.5); Red Cell Distribution Width 15.9 % (9.3-17.3)
[2022-01-01 05:18] LABS: Platelet Count 34 T/CUMM (130-400); White Blood Count 0.3 T/CUMM (4-12)
[2022-01-01 05:25] LABS: Calcium 8.3 MG/DL (8.5-10.1); Osmolality,Calculated 268.2 MOS/KG (273-304); Potassium 3.5 MMOL/L (3.5-5.1)
[2022-01-01 06:03] LABS: Lymphocytes 92 % (20-55); Total Cells Counted 100
[2022-01-01 06:04] LABS: Atypical Lymphocytes Few; Microcytosis Slight; Platelet Estimate Decreased
[2022-01-01] MEDS: PANTOPRAZOLE 40 MG TABLET PO SCH (08:44)
[2022-01-01] MEDS: FLUCONAZOLE INJ 200 MG/100 ML PREMIX IV SCH (08:44)
[2022-01-01] MEDS: ACYCLOVIR 200 MG CAPSULE PO SCH (08:44)
[2022-01-01] MEDS: INSULIN REGULAR 100 UNIT/ML SUBCUT SCH ×2 (08:45→11:15)
[2022-01-01] MEDS: SODIUM CHLORIDE 0.9% 1,000 ML IV SCH (11:16)
[2022-01-01 12:35] VITALS: BP 127/78
== END 2022-01-01 13:25 | disposition home health service (06) | DRG 808 ==
LOC: N.ED 02:31 → N.EDINP 04:13 → N.TELES 17:14
PROVIDERS: ADMIT Internal Medicine; ATTEND Internal Medicine

== ENCOUNTER 2022-01-18 16:16 | Inpatient (IN) ==
[2022-01-18] MEDS ORDERED: ONDANSETRON 4 MG/2 ML VIAL IV ONE (16:53)
[2022-01-18] MEDS ORDERED: CEFEPIME 1,000 MG in SODIUM CHLORIDE 0.9% 100 ML IV STA ×2 (16:54→18:12)
[2022-01-18] MEDS ORDERED: SODIUM CHLORIDE 0.9% 1,000 ML IV STA ×2 (16:54)
[2022-01-18 17:29] LABS: Hematocrit 25.9 VOL% (35.7-47.0); Hemoglobin 8.6 GM/DL (12.0-16.0); Lymphocytes # 0.2 10*3/uL (1.4-4.0); Lymphocytes % 84.6 % (21.3-54.2); Mean Corpuscular HGB Conc 33.2 GM/DL (32-36); Mean Platelet Volume 9.1 FL (9.6-12.0); Monocytes % 11.5 % (1.7-12.7); Neutrophils % 3.9 % (38.7-73.9); Red Blood Count 3.01 MC/CUMM (3.8-5.5); Red Cell Distribution Width 14.2 % (9.3-17.3)
[2022-01-18 17:30] LABS: White Blood Count 0.3 T/CUMM (4-12)
[2022-01-18 17:31] LABS: Platelet Count 28 T/CUMM (130-400)
[2022-01-18] MEDS ORDERED: ACETAMINOPHEN 500 MG TABLET PO STA (17:39)
[2022-01-18 17:46] LABS: Alanine Aminotransferase 17 U/L (13-56); Albumin 2.8 G/DL (3.4-5.0); Alkaline Phosphatase 99 U/L (45-117); Aspartate Amino Transferase 8 U/L (0-37); Blood Urea Nitrogen 17 MG/DL (7-18); Calcium 9.4 MG/DL (8.5-10.1); Carbon Dioxide 31 MMOL/L (21-32); Chloride 91 MMOL/L (98-107); Glucose 165 MG/DL (74-106); Osmolality,Calculated 265.8 MOS/KG (273-304); Potassium 3.4 MMOL/L (3.5-5.1); Sodium 130 MMOL/L (136-145); Total Protein 7.9 G/DL (6.4-8.2)
[2022-01-18] MEDS ORDERED: ACETAMINOPHEN 325 MG TABLET ONE (17:47)
[2022-01-18] MEDS ORDERED: POTASSIUM CHLORIDE 20 MEQ TABLET PO STA (18:05)
[2022-01-18 18:25] LABS: Glucose,Urine (UA) Negative (Negative); Ketones,Urine Negative (Negative); Nitrite,Urine Negative (Negative); Protein,Urine 100 mg/dL (Negative); Urine Appearance Clear (Clear); Urine Color Yellow (Yellow)
[2022-01-18 18:27] LABS: Bilirubin,Urine Negative (Negative); Blood, Urine Negative (Negative); Urine Urobilinogen 0.2 eU/dL (<2.0)
[2022-01-18 18:30] LABS: Bacteria,Urine Occasional /HPF (Few); Hyaline Casts,Urine 1 /LPF (0-3); Mucus,Urine Occasional /LPF (Occasional); RBC,Urine 4 /HPF (0-4); Squamous Epithelial Cell,Urine Occasional /HPF (0-10)
[2022-01-18 18:49] LABS: Lymphocytes 80 % (20-55); Platelet Estimate Decreased; Total Cells Counted 100
[2022-01-18] MEDS ORDERED: ONDANSETRON 4 MG/2 ML VIAL IV PRN (19:13)
[2022-01-18] MEDS ORDERED: GLUCAGON 1 MG VIAL IM PRN (19:15)
[2022-01-18] MEDS ORDERED: DEXTROSE 10% 250 ML BAG IV PRN (19:25)
[2022-01-18] MEDS ORDERED: FLUCONAZOLE INJ 200 MG/100 ML PREMIX IV SCH ×2 (19:30→21:00)
[2022-01-18] MEDS: SODIUM CHLORIDE 0.9% 1,000 ML IV SCH (19:40)
[2022-01-18] MEDS ORDERED: IBUPROFEN 400 MG TABLET PO STA (20:49)
[2022-01-18] MEDS: INSULIN LISPRO 100 UNIT/ML SUBCUT SCH (21:11)
[2022-01-18] MEDS: ACETAMINOPHEN 500 MG TABLET PO SCH (23:28)
[2022-01-19] MEDS: SODIUM CHLORIDE 0.9% 250 ML IV SCH ×3 (00:05→02:17)
[2022-01-19 01:18] LABS: Hematocrit 19.9 VOL% (35.7-47.0); Hemoglobin 6.5 GM/DL (12.0-16.0); Immature Granulocytes % 9.1 %; Immature Granulocytes Absolute 0.01 #; Lymphocytes # 0.1 10*3/uL (1.4-4.0); Lymphocytes % 63.6 % (21.3-54.2); Mean Corpuscular HGB Conc 32.7 GM/DL (32-36); Mean Corpuscular Volume 87.7 FL (87-102); Monocytes % 27.3 % (1.7-12.7); Red Blood Count 2.27 MC/CUMM (3.8-5.5); Red Cell Distribution Width 14.6 % (9.3-17.3)
[2022-01-19 01:22] LABS: Platelet Count 19 T/CUMM (130-400); White Blood Count 0.1 T/CUMM (4-12)
[2022-01-19 01:35] LABS: Calcium 8.2 MG/DL (8.5-10.1); Osmolality,Calculated 277.8 MOS/KG (273-304); Potassium 4.1 MMOL/L (3.5-5.1)
[2022-01-19 02:04] LABS: Lymphocytes 68 % (20-55); Total Cells Counted 100
[2022-01-19 02:05] LABS: Anisocytosis Slight; Platelet Estimate Decreased
[2022-01-19] MEDS ORDERED: SODIUM CHLORIDE 0.9% 1,000 ML IV PRN (03:13)
[2022-01-19] MEDS: ACETAMINOPHEN 500 MG TABLET PO SCH ×3 (05:05→17:12)
[2022-01-19 05:36] LABS: Hematocrit 22.4 VOL% (35.7-47.0); Hemoglobin 7.2 GM/DL (12.0-16.0)
[2022-01-19] MEDS: SODIUM CHLORIDE 0.9% 1,000 ML IV SCH ×3 (07:30→14:52)
[2022-01-19] MEDS ORDERED: diphenhydrAMINE 50 MG/1 ML VIAL IV ONE ×2 (08:36→23:42)
[2022-01-19] MEDS ORDERED: methylPREDNISolone SOD SUC 40 MG/1 ML VIAL IV ONE ×2 (08:36→23:32)
[2022-01-19] MEDS ORDERED: ACETAMINOPHEN 325 MG TABLET PO ONE (08:38)
[2022-01-19] MEDS: INSULIN LISPRO 100 UNIT/ML SUBCUT SCH ×4 (08:48→20:49)
[2022-01-19] MEDS ORDERED: SODIUM CHLORIDE 0.9% 500 ML IV ONE (08:56)
[2022-01-19] MEDS: FLUCONAZOLE 200 MG TABLET PO SCH (09:33)
[2022-01-19] MEDS ORDERED: VANCOMYCIN INJ 1,250 MG in SODIUM CHLORIDE 0.9% 250 ML IV PRN (10:12)
[2022-01-19] MEDS ORDERED: VANCOMYCIN INJ 1,000 MG in SODIUM CHLORIDE 0.9% 250 ML IV SCH (10:30)
[2022-01-19] MEDS: CEFEPIME 1,000 MG in SODIUM CHLORIDE 0.9% 100 ML IV SCH ×2 (11:26→22:02)
[2022-01-19] MEDS ORDERED: VANCOMYCIN INJ 1,750 MG in SODIUM CHLORIDE 0.9% 500 ML IV ONE (12:00)
[2022-01-19] MEDS: oxyCODONE IR 5 MG TABLET PO PRN (17:38)
[2022-01-19 22:57] LABS: Hematocrit 32.7 VOL% (35.7-47.0); Hemoglobin 10.7 GM/DL (12.0-16.0); Immature Granulocytes % 2.6 %; Immature Granulocytes Absolute 0.01 #; Lymphocytes # 0.3 10*3/uL (1.4-4.0); Lymphocytes % 82.1 % (21.3-54.2); Mean Corpuscular HGB Conc 32.7 GM/DL (32-36); Mean Corpuscular Volume 88.6 FL (87-102); Mean Platelet Volume 8.5 FL (9.6-12.0); Monocytes # 0.1 10*3/uL (0.11-0.8); Monocytes % 12.8 % (1.7-12.7); Neutrophils % 2.5 % (38.7-73.9); Red Blood Count 3.69 MC/CUMM (3.8-5.5); Red Cell Distribution Width 14.7 % (9.3-17.3)
[2022-01-19 23:03] LABS: Platelet Count 8 T/CUMM (130-400); White Blood Count 0.4 T/CUMM (4-12)
[2022-01-19] MEDS ORDERED: ACETAMINOPHEN 500 MG TABLET PO ONE (23:15)
[2022-01-19] MEDS ORDERED: SODIUM CHLORIDE 0.9% 1,000 ML IV SCH (23:30)
[2022-01-19 23:33] LABS: Reactive Lymphocytes Few
[2022-01-19] MEDS ORDERED: diphenhydrAMINE CAP 25 MG CAPSULE PO ONE (23:33)
[2022-01-19] MEDS ORDERED: diphenhydrAMINE 50 MG/1 ML VIAL ONE (23:35)
[2022-01-19 23:36] LABS: Platelet Estimate Decreased
[2022-01-20] MEDS ORDERED: FUROSEMIDE 20 MG/2 ML VIAL IV ONE (01:25)
[2022-01-20 02:03] LABS: Bacteria,Urine Occasional /HPF (Few); Bilirubin,Urine Negative (Negative); Blood, Urine Trace mg/dL (Negative); Glucose,Urine (UA) Negative (Negative); Ketones,Urine Negative (Negative); Mucus,Urine Occasional /LPF (Occasional); Nitrite,Urine Negative (Negative); Protein,Urine 100 mg/dL (Negative); RBC,Urine <1 /HPF (0-4); Squamous Epithelial Cell,Urine Occasional /HPF (0-10); Urine Appearance Clear (Clear); Urine Color Yellow (Yellow); Urine Urobilinogen 0.2 eU/dL (<2.0); Urine pH 5.5 (4.5-8.0)
[2022-01-20 02:33] LABS: Hematocrit 25.8 VOL% (35.7-47.0); Hemoglobin 8.6 GM/DL (12.0-16.0); Mean Corpuscular HGB Conc 33.3 GM/DL (32-36); Mean Corpuscular Volume 86.6 FL (87-102); Red Blood Count 2.98 MC/CUMM (3.8-5.5); Red Cell Distribution Width 14.6 % (9.3-17.3)
[2022-01-20 02:41] LABS: Platelet Count 16 T/CUMM (130-400)
[2022-01-20 02:49] LABS: Calcium 7.8 MG/DL (8.5-10.1); Osmolality,Calculated 280.8 MOS/KG (273-304); Potassium 4.1 MMOL/L (3.5-5.1)
[2022-01-20 03:19] LABS: Lymphocytes 100 % (20-55); Platelet Estimate Decreased; Total Cells Counted 100
[2022-01-20 03:21] LABS: Anisocytosis Slight
[2022-01-20] MEDS: ACETAMINOPHEN 500 MG TABLET PO SCH ×2 (03:26→05:56)
[2022-01-20] MEDS: oxyCODONE IR 5 MG TABLET PO PRN (03:34)
[2022-01-20 05:47] LABS: Arterial Base Excess iSTAT 0 MMOL/L (-2.5-2.5); Arterial Bicarbonate iSTAT 23.1 MMOL/L (20-26); Arterial O2 Saturation iSTAT 90 % (95-100); Arterial PCO2 iSTAT 29 MM HG (35-48); Arterial PO2 iSTAT 52 MM HG (80-95); Arterial Total CO2 iSTAT 24 MMO/L (23-27); Arterial pH iSTAT 7.514 (7.35-7.45)
[2022-01-20] MEDS ORDERED: MAGNESIUM SULF RIDER 4 GM/100 ML PREMIX IV PRN (06:16)
[2022-01-20] MEDS ORDERED: MAGNESIUM SULF RIDER 2 GM/50 ML PREMIX IV PRN (06:16)
[2022-01-20] MEDS ORDERED: ETOMIDATE 20 MG/10 ML VIAL IV ONE ×2 (07:13→07:24)
[2022-01-20] MEDS ORDERED: SUCCINYLCHOLINE 200 MG/10 ML VIAL ONE (07:13)
[2022-01-20] MEDS ORDERED: SUCCINYLCHOLINE 200 MG/10 ML VIAL IV ONE (07:25)
[2022-01-20] MEDS ORDERED: MIDAZOLAM 100 MG in SODIUM CHLORIDE 0.9% 80 ML IV PRN (07:26)
[2022-01-20] MEDS ORDERED: methylPREDNISolone SOD SUC 40 MG/1 ML VIAL IV ONE (07:37)
[2022-01-20] MEDS ORDERED: diphenhydrAMINE 50 MG/1 ML VIAL IV ONE (07:37)
[2022-01-20] MEDS ORDERED: METOPROLOL TARTRATE 5 MG/5 ML VIAL IV ONE ×2 (08:02→08:03)
[2022-01-20 08:03] LABS: Lymphocytes 78 % (20-55)
[2022-01-20 08:06] LABS: Total Cells Counted 9
[2022-01-20] MEDS ORDERED: SODIUM BICARBONATE 50 MEQ/50 ML SYRINGE IV ONE (08:16)
[2022-01-20] MEDS ORDERED: EPINEPHrine 1 MG/10 ML SYRINGE IV ONE (08:16)
[2022-01-20] MEDS ORDERED: CALCIUM CHLORIDE 1,000 MG/10 ML SYRINGE IV ONE (08:20)
[2022-01-20] MEDS ORDERED: MAGNESIUM SULFATE 1 GM/2 ML VIAL IV ONE (08:22)
[2022-01-20] MEDS ORDERED: EPINEPHrine 1 MG/ML VIAL ET ONE (08:30)
[2022-01-20] MEDS ORDERED: SODIUM CHLORIDE 0.9% 1,000 ML IV PRN (08:34)
[2022-01-20 08:43] VITALS: BP 86/59
[2022-01-20 08:45] LABS: Hematocrit 20.8 VOL% (35.7-47.0); Immature Granulocytes Absolute 0.01 #; Lymphocytes # 0.2 10*3/uL (1.4-4.0); Mean Corpuscular HGB Conc 30.8 GM/DL (32-36); Mean Corpuscular Volume 92.9 FL (87-102); Mean Platelet Volume 9.8 FL (9.6-12.0); Red Blood Count 2.24 MC/CUMM (3.8-5.5); Red Cell Distribution Width 15.3 % (9.3-17.3)
[2022-01-20 08:51] LABS: INR 2.3; Partial Thromboplastin Time 51.5 SECS (23.7-32.9)
[2022-01-20 08:55] LABS: White Blood Count 0.3 T/CUMM (4-12)
[2022-01-20 08:56] LABS: Hemoglobin 6.4 GM/DL (12.0-16.0); Platelet Count 18 T/CUMM (130-400)
[2022-01-20 09:12] LABS: Lymphocytes 100 % (20-55); Platelet Estimate Decreased; Total Cells Counted 100
[2022-01-20 09:13] LABS: Alanine Aminotransferase 56 U/L (13-56); Albumin 1.3 G/DL (3.4-5.0); Alkaline Phosphatase 57 U/L (45-117); Anisocytosis Slight; Aspartate Amino Transferase 73 U/L (0-37); Bilirubin,Total < 0.39 MG/DL (0.20-1.00); Blood Urea Nitrogen 27 MG/DL (7-18); Calcium 9.7 MG/DL (8.5-10.1); Carbon Dioxide 21 MMOL/L (21-32); Chloride 104 MMOL/L (98-107); Glucose 240 MG/DL (74-106); Potassium 4.5 MMOL/L (3.5-5.1); Sodium 143 MMOL/L (136-145); Total Protein 4.7 G/DL (6.4-8.2)
[2022-01-20] MEDS: INSULIN LISPRO 100 UNIT/ML SUBCUT SCH ×2 (11:10→11:26)
[2022-01-20] MEDS: CEFEPIME 1,000 MG in SODIUM CHLORIDE 0.9% 100 ML IV SCH (11:26)
[2022-01-20] MEDS: FLUCONAZOLE 200 MG TABLET PO SCH (11:26)
== END 2022-01-20 08:49 | disposition expired | DRG 808 ==
LOC: N.ED 16:16 → N.TELES 19:11 → SUATTDRO 19:11 → N.TELES 22:12 → N.ICU 01-19 23:17
PROVIDERS: ADMIT Internal Medicine; ATTEND Internal Medicine